=== PATIENT | female | born 1960 | race Caucasian/White ===

== ENCOUNTER 2020-05-22 05:33 | Inpatient (IN) | payer OTHER, SELFPAY ==
[~2020-05-22] VITALS: Ht 144.8 cm; Wt 50.1 kg
[2020-05-22 05:33] VITALS: BP_SYST 153
[~2020-05-22 05:33] MED LIST: ATOR-1 PO; DEXL60CA4 PO; ERGO500020 PO; FOLI-43 PO; FOLI0.8T2 PO; GABA-531 PO; INSU1CAR16; ISOS30TA6 PO; KETO60CR2 TP; LANS30CA56 PO; LEVO137T20 PO; METO-290 PO; METO25TA6 PO; ONDA4TAB5 PO; PRO40 PO; SERT50TA PO; SEVE800T8 PO; VIT1TABL70 PO
--- NOTE | 2020-05-22 05:34 | NUR ---
Patient to ER bed 3 to gown for evaluation. Side rails up.
--- NOTE | 2020-05-22 05:36 | NUR ---
ER at bedside examining patient.
[2020-05-22] MEDS ORDERED: ASPIRIN 81 MG TAB.CHEW PO ONE (06:00)
--- NOTE | 2020-05-22 06:01 | NUR ---
Patient came to ER. C/O Shortness of Breath x 4 days. Per patient reported, had shortness of breath since [place], and started chest pain, missed dialysis yesterday. 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
--- NOTE | 2020-05-22 06:15 | NUR ---
X-ray at bedside.
--- NOTE | 2020-05-22 06:32 | NUR ---
Nuria green in [facility] - 05/22/20 at 0709 by [email or web address] Blood for labwork drawn from clinical practice consultant. Patient tolerated well.
--- NOTE | 2020-05-22 06:43 | NUR ---
Rags Laborer at bedside for blood drawn, twice, can't drawn blood, Dr. Chisholm notified.
[2020-05-22] MEDS ORDERED: AZITHROMYCIN 250 MG TABLET PO ONE (06:45)
[2020-05-22] MEDS ORDERED: DEXAMETHASONE SOD PHOSPHATE 10 MG/ML VIAL IM ONE (06:45)
--- NOTE | 2020-05-22 07:15 | NUR ---
Swabbed Covid-19 as protocol and sent to lab.
--- NOTE | 2020-05-22 07:20 | NUR ---
Given report to TUAN Higgins.
[2020-05-22] MEDS ORDERED: ONDANSETRON 4 MG ODT TAB PO ONE (07:45)
--- NOTE | 2020-05-22 07:48 | NUR ---
RECEIVED ADMITTING ORDERS FROM DR. GALEAS.
--- NOTE | 2020-05-22 07:55 | NUR ---
aCCU CHECK DONE 341. MD NOTIFIED.
--- NOTE | 2020-05-22 07:56 | NUR ---
Dr. Shant Colvin at bedside.
--- NOTE | 2020-05-22 07:58 | NUR ---
Dr. Santoyo at bedside trying to put an IJ.
[2020-05-22] MEDS ORDERED: KETOCONAZOLE 2%, 60 GM TOPICAL CREAM. (NIZORAL) TP PRN (08:15)
[2020-05-22] MEDS ORDERED: cloNIDine HCL 0.2 MG TABLET PO PRN (08:15)
[2020-05-22] MEDS ORDERED: ACETAMINOPHEN 325 MG TABLET PO PRN (08:15)
[2020-05-22] MEDS ORDERED: LORazepam 2 MG/ML VIAL IVP PRN (08:15)
[2020-05-22] MEDS ORDERED: DEXTROSE 50% JECT 50 ML DISP.SYRIN IVP PRN (08:15)
[2020-05-22] MEDS ORDERED: MAGNESIUM SULFATE 50 ML IV PRN (08:15)
[2020-05-22] MEDS ORDERED: ZOLPIDEM TARTRATE 5 MG TABLET PO PRN (08:15)
[2020-05-22] MEDS ORDERED: POTASSIUM CHLORIDE 20 MEQ TAB.PRT.SR PO PRN (08:15)
[2020-05-22] MEDS ORDERED: DOCUSATE SODIUM 100 MG CAPSULE PO PRN (08:15)
[2020-05-22] MEDS ORDERED: MORPHINE 2 MG/ML INJ. SYRINGE IVP PRN (08:15)
[2020-05-22] MEDS ORDERED: ONDANSETRON HCL 4 MG/2 ML VIAL IVP PRN ×2 (08:15→08:30)
[2020-05-22] MEDS ORDERED: MUPIROCIN 2% TOPICAL OINTMENT 22 GM NS PRN (08:15)
[2020-05-22 08:24] LABS: BASOPHILS # (AUTO) 0.1 K/uL (0.0-0.2); BASOPHILS % (AUTO) 0.9 % (0.0-2.0); EOSINOPHILS % (AUTO) 0.4 % (0.0-4.0); HEMATOCRIT 31.5 % (36-48); HEMOGLOBIN 10.1 g/dL (12.0-16.0); LYMPHOCYTES # (AUTO) 0.2 K/uL (1.0-5.5); LYMPHOCYTES % (AUTO) 2.2 % (20.5-51.5); MEAN CORPUSCULAR HEMOGLOBIN 31 pg (27-31); MEAN CORPUSCULAR HGB CONC 32 % (32-36); MEAN CORPUSCULAR VOLUME 98 fL (79.0-98.0); MONOCYTES # (AUTO) 0.4 K/uL (0.0-1.0); MONOCYTES % (AUTO) 4.8 % (1.7-9.3); NEUTROPHILS # (AUTO) 7.6 K/uL (1.8-7.7); NEUTROPHILS % (AUTO) 91.7 % (40.0-70.0); PLATELET COUNT (AUTO) 155 K/uL (130-430); RED CELL DISTRIBUTION WIDTH 16.6 % (9.0-15.0); WHITE BLOOD COUNT (AUTO) 8.3 K/uL (4.8-10.8)
[2020-05-22 08:39] LABS: CALCIUM 9.2 mg/dL (8.4-11.0)
[2020-05-22 08:43] LABS: INR 1.2 (0.8-1.2); PROTHROMBIN TIME 12.6 SECS (9.5-12.5)
[2020-05-22 08:45] LABS: ALBUMIN 3.9 g/dL (3.4-4.8); TOTAL BILIRUBIN 0.9 mg/dL (0.0-1.0)
[2020-05-22 08:54] LABS: POTASSIUM 6.7 mmol/L (3.5-5.1)
[2020-05-22 08:55] LABS: CREATININE 10.26 mg/dL (0.55-1.30)
[2020-05-22] MEDS ORDERED: VIT B CMPLX PO SCH (09:00)
[2020-05-22] MEDS ORDERED: INSULIN REGULAR, HUMAN 100 UNITS/ML, 10 ML VIAL IV ONE (09:00)
[2020-05-22] MEDS: SERTRALINE HCL 50 MG TABLET PO SCH (09:00)
[2020-05-22] MEDS ORDERED: [UNRECOGNIZED DRUG - OTHER] PO SCH (09:00)
[2020-05-22] MEDS: NEPHROVITE, (FOLIC ACID/VITAMIN B COMP W-C 1 TAB) PO SCH (09:00)
[2020-05-22] MEDS: METOCLOPRAMIDE HCL 10 MG TABLET PO SCH (09:00)
[2020-05-22] MEDS: LANSOPRAZOLE 30 MG CAPSULE.DR PO SCH (09:00)
[2020-05-22] MEDS ORDERED: FOLIC ACID 1 MG TABLET PO SCH (09:00)
[2020-05-22] MEDS ORDERED: BIOTIN PO SCH (09:00)
[2020-05-22] MEDS: GABAPENTIN 300 MG CAPSULE PO SCH ×3 (09:00→21:00)
[2020-05-22] MEDS ORDERED: LEVOTHYROXINE SODIUM 0.137 MG TABLET PO SCH (09:00)
[2020-05-22] MEDS: ATORVASTATIN 20 MG TABLET PO SCH (09:00)
[2020-05-22] MEDS: HEPARIN SODIUM,PORCINE 5,000 UNITS/ML VIAL SUBCUT SCH ×2 (09:00→21:13)
[2020-05-22] MEDS ORDERED: NON-FORMULARY MEDICATION (Dexlansoprazole (Dexilant) 60 MG) PO SCH (09:00)
[2020-05-22] MEDS: ISOSORBIDE MONONITRATE 30 MG TAB.ER.24H PO SCH (09:00)
[2020-05-22] MEDS: METOPROLOL TARTRATE 25 MG TABLET PO SCH (09:00)
--- NOTE | 2020-05-22 09:04 | NUR ---
Administered Insulin IVP as ordered by Dr. Santoyo. Patient tolerated the medications well. See eMAR for details.
[2020-05-22] MEDS ORDERED: INSULIN REGULAR, HUMAN 10 UNITS/0.1 ML INJ ONE (09:17)
[2020-05-22] MEDS ORDERED: SODIUM ZIRCONIUM CYCLOSILICATE 10 GM POWD.PACK PO ONE (09:30)
[2020-05-22] MEDS ORDERED: CALCIUM GLUCONATE 1 GM/10 ML VIAL IVP ONE (09:30)
--- NOTE | 2020-05-22 09:45 | NUR ---
Dr. Stoddard at bedside.
--- NOTE | 2020-05-22 09:54 | NUR ---
Patient will be admitted to care of DR. GALEAS. Admitted to TELE PUI unit. Will go to room 124B. Belongings list completed. Complete and up to date summary report printed. SBAR report to be given at bedside with opportunity for questions.
--- NOTE | 2020-05-22 10:18 | NUR ---
Admission patient brought to room 124B via rney on 4L nasal cannula, bedside SBAR report received from DESK MONITOR, patient was able to transfer from rjarales to bed with assistance, no acute distress noted, patient denies any pain, respirations even and unlabored on 4L nasal cannula, tele monitor placed on patient, assisted patient to change into hospital gown, right IJ clean, dry, and intact, COVID [address], educated patient on use of call light and asked to call for assistance, patient verbalized understanding, call light in reach, bed in low and locked position, bed alarm on.
[2020-05-22 10:20] VITALS: BP_SYST 135
--- NOTE | 2020-05-22 10:27 | NUR ---
CONSULT PULMONARY SOB PNA DR BINH JOHNSON IS ROUNDING AND IS AWARE OF CONSULT
--- NOTE | 2020-05-22 10:30 | NUR ---
CONSULT NEPHROLOGY DIALYSIS DR ZAIN MARIE [phone] S/W [place] OFFICE
--- NOTE | 2020-05-22 10:31 | NUR ---
CONSULT CARDIOLOGY CHF DR DONALD [phone] S/W [place] OFFICE
--- NOTE | 2020-05-22 10:37 | NUR ---
Spoke with Physician spoke with Dr. Rodriges regarding orders for PICC line, informed him that patient currently has a right IJ with orders for PICC line placement, patients current dialysis access is a left upper thigh AV shunt, per patient she has an old access in her right upper arm, per Dr. Antelmo paniagua to place PICC line in left upper arm, verified with read back. Addendum: 05/22/20 at 1048 by Karen Rivera RN correction to above note, physician spoken to was Dr. Gordillo not Dr. Rodriges
--- NOTE | 2020-05-22 10:43 | NUR ---
PICC line vascular TUAN Joyner at bedside for placement of PICC line, informed Anya that per Dr. Rodriges PICC line may be placed to left upper arm, understanding verbalized. Addendum: 05/22/20 at 1048 by Karen Rivera RN correction to above note, physician spoken to was Dr. Gordillo not Dr. Rodriges
--- NOTE | 2020-05-22 10:55 | NUR ---
Physician Rounds Dr. Gordillo at bedside examining patient, vascular RN Anya speaking with Dr. Gordillo, per Dr. Gordillo okay to place midline due to difficulty placing PICC line.
--- NOTE | 2020-05-22 10:55 | NUR ---
Spoke with Pharmacist spoke with pharmacist Marisol, per pharmacist she will change calcium gluconate order from IVP to IV, RN not to administer the IVP orders and await IV medication from pharmacy.
[2020-05-22] MEDS ORDERED: CALCIUM GLUCONATE 1 GM in NS 50 ML IV ONE (11:00)
--- NOTE | 2020-05-22 11:02 | NUR ---
Midline midline placed by vascular TUAN Joyner to left upper arm, patient tolerated well, no acute distress noted, biopatch in place, transparent dressing in place, no bleeding, per vascular TUAN clark is ready to use.
--- NOTE | 2020-05-22 11:25 | NUR ---
Dialysis/Medication administration trim line worker Rucker at bedside setting up for hemodialysis, 0900 PO medications brought to bedside, per stem maker Rucker the PO medications will have to be held until dialysis is completed.
--- NOTE | 2020-05-22 11:36 | NUR ---
Closing Note SBAR report given to receiving RN, patient resting in bed, laboratory monitor at bedside for hemodialysis, respirations even and unlabored on 4L nasal cannula, no acute distress noted, patient denies any pain, educated patient on use of call light and asked to call for assistance, patient verbalized understanding, call light in reach, bed in low and locked position, bed alarm on, endorsed care to Irene Woodward.
[2020-05-22 11:40] VITALS: BP_SYST 124
--- NOTE | 2020-05-22 11:50 | NUR ---
REPORT. RECEIVED PT IN ROOM 124-B, PT AWAKE AND ALERT, ABLE TO EXPRESS BASIC NEEDS AND ATTENDED, HEMODIALYSIS IN PROGRESS, CALL LIGHT IN REACH, CONTINUE TO MONITOR.
[2020-05-22] MEDS: INSULIN LISPRO SLIDING SCALE 100 UNITS/ML VIAL (humaLOG) SUBCUT PRN ×3 (12:38→21:14)
[2020-05-22 14:00] VITALS: BP_SYST 125
--- NOTE | 2020-05-22 14:10 | NUR ---
HD. PT COMPLETED DIALYSIS, PULLED OUT 3 L.
[2020-05-22] MEDS: SEVELAMER CARBONATE 800 MG TABLET PO SCH ×2 (14:46→17:57)
--- NOTE | 2020-05-22 16:50 | NUR ---
ACITIVITY. PT ASKED TO BE TAKEN TO THE BATHROOM OFFERED A BEDPAN, PT DECLINED, PT REQUESTED TO BRING A COMMODE. PT ABLE TO GET OUT OF THE BED SLOWLY AND GUIDED HER TO THE BEDSIDE COMMODE. SHE HAD A BOWEL MOVEMENT. WIPES PROVIDED FOR PERINEAL HYGIENE. THEN SHE RETURNED TO HER BED AND CAREFULLY LIFTED HER LEGS TO BED.
[2020-05-22] MEDS: PIPERACILLIN/TAZO 2.25G/DEX-IS 50 ML IV SCH ×2 (16:52→21:04)
--- NOTE | 2020-05-22 18:20 | NUR ---
ELEVATED BLOOD SUGAR. CALLED DR GALEAS AND REPORTED THAT PT'S BLOOD SUGAR 452, 18 UNITS HUMALOG SQ WAS ALREADY GIVEN. HE ORDERED ANOTHER HUMALOG SQ INJECTION AND TO USE 10 UNITS, ORDERS CARRIED OUT.
[2020-05-22] MEDS ORDERED: INSULIN Lispro 100 UNITS/ML VIAL (humaLOG) SUBCUT ONE (18:30)
--- NOTE | 2020-05-22 19:00 | NUR ---
REPORT. GIVEN TO ONCOMING MILK PICKUP DRIVER NURSE.
[2020-05-22 20:00] VITALS: BP_SYST 110
--- NOTE | 2020-05-22 20:00 | NUR ---
opening note patient is resting in bed, alert and oriented, patient denies any pain at this time, tolerating well on 4L nasal cannula, patient was able to demonstrate to me 3 times that she is able to get onto the bedside commode independently. IV sites intact and flushing well. educated conference interpreter light system and plan of care, patient verbalized understanding, no other needs addressed at this time. fall/safety and isolation precautions in place.
--- NOTE | 2020-05-22 21:00 | NUR ---
Dr Vinicius connors informed him that the patient's blood sugar was 485. I informed him that I did follow the protocol and gave the sliding scale insulin lispro [address] Colvin gave me an order for lantus 10units QHS, first dose to be given now. I educated the patient about this and she verbalized understanding.
[2020-05-22] MEDS: INSULIN GLARGINE 100 UNITS/ML 10 ML VIAL SUBCUT SCH (22:13)
[2020-05-22] MEDS ORDERED: ROPI3TAB PO (23:18)
[2020-05-23] VITALS: BP_SYST 115
--- NOTE | 2020-05-23 00:47 | NUR ---
medication patient resting in bed, educated on medication use and side effects, patient verbalized understanding, no other needs addressed at this time, fall/safety and isolation precautions in place.
--- NOTE | 2020-05-23 02:18 | NUR ---
patient resting in bed patient resting in bed, eyes closed breathing easy and nonlabored, tolerating well on 4L nasal cannula, no other needs addressed at this time, fall/safety and isolation precautions in place.
[2020-05-23 04:00] VITALS: BP_SYST 136
[2020-05-23] MEDS: PIPERACILLIN/TAZO 2.25G/DEX-IS 50 ML IV SCH (06:15)
--- NOTE | 2020-05-23 06:35 | NUR ---
closing note patient is resting in bed, alert and oriented, patient denies any pain at this time, tolerating well on 4L nasal cannula, IV sites intact and flushing well. no other needs addressed at this time. fall/safety and isolation precautions in place. blood sugar was 93. will endorse care to day shift nurse. patient can get on bedside commode independently.
--- NOTE | 2020-05-23 07:27 | NUR ---
Nutrition Update Manuel Scale 15 noted. Pt admitted for CHF, Pneumonia Diet: Renal standard BMI: 23.4 kg/m2 RD to follow per nutrition care standards.
--- NOTE | 2020-05-23 07:30 | NUR ---
OPENING NOTES PT AWAKE, ALERT, AND ORIENTED, NONLABORED BREATHING NOTED, RECEIVING O2 AT 4LPM VIA NASAL CANNULA, TOLERATING WELL. MIDLINE INTACT AND PATENT, NO SIGNS OF INFILTRATION NOTED. NO ACUTE DISTRESS NOTED. ALL NEEDS MET. CALL LIGHT IN REACH. FALL, ASPIRATION, AND ISOLATION PRECAUTIONS IN PLACE. CONTINUE TO MONITOR.
[2020-05-23 08:00] VITALS: BP_SYST 124; BP_SYST 156
--- NOTE | 2020-05-23 08:00 | NUR ---
SPOKE TO DR. GALEAS REGARDING IJ CATHETER, OK TO REMOVE IF NOT PATENT SINCE PATIENT HAS MIDLINE INTACT.
--- NOTE | 2020-05-23 09:13 | NUR ---
SPOKE TO ANNITA FROM LAB, UNABLE TO DRAW LAB, ATTEMPTED THREE TIMES. SPOKE TO DR. GALEAS AT NURSE'S STATION, STATED TO TRY AGAIN, SPOKE TO ANNITA, STATED THEY WILL TRY AGAIN IN THE AFTERNOON.
--- NOTE | 2020-05-23 09:28 | NUR ---
CONSULTATION PAGED/CALLED Reason for Consultation: ENEDINA BERKOWITZ Person Who was Notified: JOEL Consulting Physician: ART Rate Setter Specialty: ID Ordering Physician: GUDELIA
[2020-05-23] MEDS: LEVOTHYROXINE SODIUM 0.1 MG TABLET PO SCH (09:30)
[2020-05-23] MEDS: ATORVASTATIN 20 MG TABLET PO SCH (09:30)
[2020-05-23] MEDS: HEPARIN SODIUM,PORCINE 5,000 UNITS/ML VIAL SUBCUT SCH ×2 (09:30→21:42)
[2020-05-23] MEDS: METOCLOPRAMIDE HCL 10 MG TABLET PO SCH (09:30)
[2020-05-23] MEDS: LANSOPRAZOLE 30 MG CAPSULE.DR PO SCH (09:30)
[2020-05-23] MEDS: SEVELAMER CARBONATE 800 MG TABLET PO SCH ×3 (09:30→18:30)
[2020-05-23] MEDS: SERTRALINE HCL 50 MG TABLET PO SCH (09:30)
[2020-05-23] MEDS: GABAPENTIN 300 MG CAPSULE PO SCH ×3 (09:30→21:28)
[2020-05-23] MEDS: ISOSORBIDE MONONITRATE 30 MG TAB.ER.24H PO SCH (09:30)
[2020-05-23] MEDS: METOPROLOL TARTRATE 25 MG TABLET PO SCH (09:30)
[2020-05-23] MEDS: NEPHROVITE, (FOLIC ACID/VITAMIN B COMP W-C 1 TAB) PO SCH (09:30)
--- NOTE | 2020-05-23 09:30 | NUR ---
ROUTINE MEDS ADMINISTERED ORDERED PER MD, EDUCATION GIVEN, TOLERATED WELL. PT REFUSED GABAPENTIN, EDUCATION GIVEN ON RISKS AND BENEFITS, ASKED THREE TIMES, PT CONTINUE TO REFUSE.
--- NOTE | 2020-05-23 09:31 | NUR ---
WASTED PT'S MED GABAPENTIN IN THE ROOM SINCE PT REFUSED AND ISO FOR PUI.
--- NOTE | 2020-05-23 12:00 | NUR ---
VITAL SIGNS STABLE. NO ACUTE DISTRESS NOTED. ALL NEEDS MET. CALL LIGHT IN REACH. CONTINUE TO MONITOR.
--- NOTE | 2020-05-23 14:26 | NUR ---
Dietitian Recommendations *Recommend: [facility] Renal Standard diet. Please see Nutritional Assessment for details. ROSITA, JOANNA
[2020-05-23] MEDS: cefTRIAXone 1 GM in D5W 50 ML IV SCH (15:00)
[2020-05-23 17:06] VITALS: BP_SYST 124
[2020-05-23] MEDS: INSULIN LISPRO SLIDING SCALE 100 UNITS/ML VIAL (humaLOG) SUBCUT PRN ×2 (17:30→21:40)
--- NOTE | 2020-05-23 19:00 | NUR ---
CLOSING NOTES REMOVED IJ IV LINE, PER DR. GALEAS OK TO REMOVE. CATHETER TIP INTACT, APPLIED PRESSURE, NO ACTIVE BLEEDING NOTED. PT AWAKE, ALERT, AND ORIENTED EATING DINNER. NO ACUTE DISTRESS NOTED. PT RECEIVING O2 AT 4LPM VIA NASAL CANNULA. ALL NEEDS MET. MIDLINE INTACT AND PATENT, NO SIGNS OF INFILTRATION NOTED. FALL AND ASPIRATION AND ISOLATION PRECAUTIONS IN PLACE. WILL ENDORSE TO NOC NURSE.
--- NOTE | 2020-05-23 19:45 | NUR ---
OPENING NOTES Received report from TUAN Bo. Patient resting in wheelchair, AAOx4, breathing evenly and nonlabored on 4L of oxygen via NC. Patient has a midline on the left upper arm. Patient has a left thigh shunt with dialysis schedule MWF. Educated patient on plan of care, fall/safety/isolation/aspiration precautions, call light system, patient stated understanding with return demonstration. No s/s of distress at this time, no other needs at this time, will continue to monitor.
--- NOTE | 2020-05-23 19:50 | NUR ---
SPOKE WITH DR. CORDOVA, NOTIFIED MD THAT PATIENT'S COVID RAPID AND PCR FOR 05/22/30 WAS NEGATIVE, LATEST VITAL SIGNS WERE NORMAL AND THAT PATIENT IS CURRENTLY ON 4L OF OXYGEN VIA NC, O2 SATURATION NORMAL. MD ORDERED TO DISCONTINUE COVID ISOLATION.
[2020-05-23 21:00] VITALS: BP_SYST 136
[2020-05-23] MEDS: DOXYCYCLINE HYCLATE 100 MG CAPSULE PO SCH (21:28)
[2020-05-23] MEDS: INSULIN GLARGINE 100 UNITS/ML 10 ML VIAL SUBCUT SCH (21:39)
--- NOTE | 2020-05-23 21:40 | NUR ---
MEDICATIONS/ROUNDS Patient resting in wheelchair, awake, breathing evenly and nonlabored on 4L of oxygen via NC. Midline on the left upper arm flushed, patent and benign, no s/s of infiltration or infection noted. Notified patient on plan to transfer to a regular room. Educated patient on due medications, patient stated understanding. BS checked, coverage was needed. Administered medications, patient tolerated them well. Hygiene care done. Patient denies any pain or SOB at this time. No s/s of distress at this time, no other needs at this time. Fall/safety/aspiration precautions, will continue to monitor.
--- NOTE | 2020-05-23 22:05 | NUR ---
TRANSFER TO ROOM 113A Transferred patient to room 113A. Patient resting in bed, awake, breathing evenly and nonlabored on 4L of oxygen via NC. Reoriented patient to room and call light system, patient stated understanding with return demonstration. Patient asked for some snacks which was provided. No s/s of distress at this time, no other needs at this time. Fall/safety/aspiration precautions, will continue to monitor.
--- NOTE | 2020-05-24 00:10 | NUR ---
ROUNDS Patient resting in bed, awake, breathing evenly and nonlabored on 4L of oxygen via NC. Patient refused midnight vital sign check. Educated patient on importance of checking vital signs every four hours, patient stated understanding but still refused. Patient denied any SOB or pain at this time. No s/s of distress at this time, no other needs at this time. Fall/safety/aspiration precautions, will continue to monitor.
--- NOTE | 2020-05-24 02:01 | NUR ---
ROUNDS Patient resting in bed, eyes closed, breathing evenly and nonlabored on 4L of oxygen via NC. No s/s of distress at this time, no other needs at this time. Fall/safety/aspiration precautions, will continue to monitor.
--- NOTE | 2020-05-24 04:15 | NUR ---
ROUNDS Patient resting in bed, eyes closed, breathing evenly and nonlabored on 4L of oxygen via NC. No s/s of distress at this time, no other needs at this time. Fall/safety/aspiration precautions, will continue to monitor the patient.
[2020-05-24 04:50] VITALS: BP_SYST 124
[2020-05-24] MEDS: INSULIN LISPRO SLIDING SCALE 100 UNITS/ML VIAL (humaLOG) SUBCUT PRN ×3 (06:26→20:38)
--- NOTE | 2020-05-24 06:26 | NUR ---
CLOSING NOTES Patient resting in bed, awake, breathing evenly and nonlabored on 4L of oxygen via NC. Daily weight was done earlier. BS checked, coverage was needed. No s/s of distress at this time, no other needs at this time. Needs met throughout the shift. Fall/safety/aspiration precautions, will endorse care to morning shift RN.
--- NOTE | 2020-05-24 07:30 | NUR ---
OPENING NOTES PT AWAKE, ALERT, AND ORIENTED X4. NONLABORED BREATHING NOTED, RECEIVING O2 AT 4LPM VIA NASAL CANNULA, TOLERATING WELL. MIDLINE INTACT AND PATENT, NO SIGNS OF INFILTRATION NOTED. NO ACUTE DISTRESS NOTED. ALL NEEDS MET. CALL LIGHT IN REACH. FALL, ASPIRATION, AND ISOLATION PRECAUTIONS IN PLACE. CONTINUE TO MONITOR.
[2020-05-24 07:36] LABS: BASOPHILS % (AUTO) 0.6 % (0.0-2.0); EOSINOPHILS # (AUTO) 0.5 K/uL (0.0-0.4); EOSINOPHILS % (AUTO) 10.1 % (0.0-4.0); HEMATOCRIT 31.2 % (36-48); HEMOGLOBIN 10.1 g/dL (12.0-16.0); LYMPHOCYTES % (AUTO) 21.1 % (20.5-51.5); MEAN CORPUSCULAR HEMOGLOBIN 31 pg (27-31); MEAN CORPUSCULAR HGB CONC 33 % (32-36); MEAN CORPUSCULAR VOLUME 97 fL (79.0-98.0); MONOCYTES # (AUTO) 0.6 K/uL (0.0-1.0); NEUTROPHILS # (AUTO) 2.6 K/uL (1.8-7.7); NEUTROPHILS % (AUTO) 56.2 % (40.0-70.0); PLATELET COUNT (AUTO) 163 K/uL (130-430); RED BLOOD CELL COUNT(AUTO) 3.23 MIL/uL (4.2-6.2); RED CELL DISTRIBUTION WIDTH 16.9 % (9.0-15.0); WHITE BLOOD COUNT (AUTO) 4.6 K/uL (4.8-10.8)
[2020-05-24 07:55] LABS: ALBUMIN 3.2 g/dL (3.4-4.8); CALCIUM 8.5 mg/dL (8.4-11.0); CREATININE 4.42 mg/dL (0.55-1.30); TOTAL BILIRUBIN 0.6 mg/dL (0.0-1.0)
[2020-05-24 08:00] VITALS: BP_SYST 154
[2020-05-24] MEDS: NEPHROVITE, (FOLIC ACID/VITAMIN B COMP W-C 1 TAB) PO SCH (08:14)
[2020-05-24] MEDS: SEVELAMER CARBONATE 800 MG TABLET PO SCH ×3 (08:14→17:05)
[2020-05-24] MEDS: METOPROLOL TARTRATE 25 MG TABLET PO SCH (08:14)
[2020-05-24] MEDS: ISOSORBIDE MONONITRATE 30 MG TAB.ER.24H PO SCH (08:15)
[2020-05-24] MEDS: SERTRALINE HCL 50 MG TABLET PO SCH (08:15)
[2020-05-24] MEDS: METOCLOPRAMIDE HCL 10 MG TABLET PO SCH (08:16)
[2020-05-24] MEDS: ATORVASTATIN 20 MG TABLET PO SCH (08:16)
[2020-05-24] MEDS: DOXYCYCLINE HYCLATE 100 MG CAPSULE PO SCH ×2 (08:17→20:28)
[2020-05-24] MEDS: LANSOPRAZOLE 30 MG CAPSULE.DR PO SCH (08:17)
[2020-05-24] MEDS: HEPARIN SODIUM,PORCINE 5,000 UNITS/ML VIAL SUBCUT SCH ×2 (08:19→20:31)
[2020-05-24] MEDS: GABAPENTIN 300 MG CAPSULE PO SCH ×4 (08:22→20:41)
--- NOTE | 2020-05-24 08:30 | NUR ---
ROUTINE MEDS ADMINISTERED ORDERED PER MD, EDUCATION GIVEN, TOLERATED WELL. CONTINUE TO MONITOR.
--- NOTE | 2020-05-24 08:31 | NUR ---
SEEN BY DR. DONALD AT BEDSIDE.
--- NOTE | 2020-05-24 08:36 | NUR ---
DR. GALEAS AWARE PATIENT REFUSING GABAPENTIN.
[2020-05-24] MEDS ORDERED: LEVO250T58 PO (08:37)
--- NOTE | 2020-05-24 09:00 | NUR ---
ROUTINE MEDS/ FLU VACCINE ROUTINE MEDS ADMINISTERED ORDERED PER MD, EDUCATION GIVEN, TOLERATED WELL. FLU VACCINE ADMINISTERED ORDERED PER MD, PT CONSENTED, EDUCATION GIVEN, PT VERBALIZED UNDERSTANDING, TOLERATED WELL. ALL NEEDS MET. CALL LIGHT IN REACH. CONTINUE TO MONITOR. Addendum: 05/24/20 at 1207 by Betzy Gallegos RN WRONG PT
[2020-05-24] MEDS: LEVOTHYROXINE SODIUM 0.1 MG TABLET PO SCH (10:17)
--- NOTE | 2020-05-24 10:18 | NUR ---
routine meds administered as ordered per md, education given, tolerated well. continue to monitor.
--- NOTE | 2020-05-24 11:21 | NUR ---
PT HAD TEMP OF 100.3, PLAN TO D/C TODAY, PAGED DR. GALEAS, SPOKE TO JOEL FOR EXCHANGE. Addendum: 05/24/20 at 1201 by Betzy Gallegos RN APPLIED COOLING METHODS TO PATIENT
--- NOTE | 2020-05-24 11:30 | NUR ---
SPOKE TO DR. GALEAS REGARDING PATIENT'S TEMP, DR. GALEAS STATED TO CANCEL D/C ORDER AT THIS TIME. RECEIVED ORDERS, VERIFIED, AND CARRIED OUT.
--- NOTE | 2020-05-24 11:44 | NUR ---
ENDORSED CARE TO TUAN MORA. PT STABLE AT THIS TIME. ENDORSED TEMGuerline READING AND DR. GALEAS CANCELLED D/C ORDER AT THIS TIME.
--- NOTE | 2020-05-24 11:45 | NUR ---
received report from beatriz ibarra.
--- NOTE | 2020-05-24 13:15 | NUR ---
DC summary faxed to Felicitas at [facility]
[2020-05-24] MEDS: cefTRIAXone 1 GM in D5W 50 ML IV SCH (13:30)
--- NOTE | 2020-05-24 13:38 | NUR ---
[phone] SPOKE WITH RUBY.
[2020-05-24] MEDS ORDERED: MAG-AL HYDROX/SIMETH 30 ML UDC PO PRN (14:15)
[2020-05-24 16:13] VITALS: BP_SYST 138
--- NOTE | 2020-05-24 18:47 | NUR ---
CLOSING NOTES, PT HAS BEEN STABLE THE WHOLE SHIFT, PT SEEN BY DR [place], HD ORDERED FOR TOMORROW. ALL MEDS GIVEN. KDUR GIVEN FOR K LEVEL OF 3.0. WILL ENDORSE TO NIGHT NURSE.
--- NOTE | 2020-05-24 19:10 | NUR ---
OPENING NOTES Patient is resting, no signs of acute respiratory distress, 2L NC. Iv site patent, dressings c/d/i. Call light within reach, bed alarm off per request after patient demonstrates proper usage of call light, bed at lowest position, HOB elevated. Received report that patient will have dialysis tomorrow. Will continue to monitor.
[2020-05-24 20:00] VITALS: BP_SYST 156
[2020-05-24] MEDS: INSULIN GLARGINE 100 UNITS/ML 10 ML VIAL SUBCUT SCH (20:36)
[2020-05-25] VITALS: BP_SYST 131
--- NOTE | 2020-05-25 00:06 | NUR ---
Patient resting, eyes closed, rise and fall of chest noted. No distress noted. Will continue to monitor.
--- NOTE | 2020-05-25 04:01 | NUR ---
Patient ambulated to the restroom with walker to use the restroom with steady gait. Patient back in bed, will continue to monitor.
--- NOTE | 2020-05-25 06:33 | NUR ---
IVP MORPHINE TAKEN OUT OF P[facility]XIS TO PROVIDE TO PATIENT, PATIENT REFUSED. PATIENT DID NOT RECEIVE MORPHINE AT THIS TIME. WASTED 2MG WITH SECOND NURSE WITNESS AT MEDICATION ROOM.
--- NOTE | 2020-05-25 06:50 | NUR ---
CLOSING NOTES Patient is resting, HOB elevated, 2L NC. No respiratory distress noted. IV site patent, dressings c/d/i. Call light within reach, bed alarm on, bed at lowest position. Patient is scheduled to have dialysis today. All needs met throughout shift. Will endorse care to oncoming shift. Addendum: 05/25/20 at 0706 by Curt Rubalcava RN PROVIDED PATIENT WITH CRANBERRY JUICE AND BLAIR CRACKER FOR BLOOD SUGAR 84. PATIENT PROVIDED TYLENOL INSTEAD OF MORPHINE AT THIS TIME.
[2020-05-25 08:00] VITALS: BP_SYST 171
[2020-05-25] MEDS: SEVELAMER CARBONATE 800 MG TABLET PO SCH ×2 (08:00→12:00)
--- NOTE | 2020-05-25 08:00 | NUR ---
NOTE OPERATING ROOM SPECIALIST AT PT'S BEDSIDE TO START DIALYSIS AT THIS TIME.
--- NOTE | 2020-05-25 08:14 | NUR ---
DISCHARGE PLANNING Per Dr Rodriges notes, pt will require HD 4x/wk. Called & spoke with Kerri @ [facility], ph [phone], states is already aware & will get the auth for it. Informed plan for pt to dc home after HD here today. States pt to go to HD as scheduled Thursday & they will set up the 4th day, she is aware pt prefers e & Th. They will arrange, states nothing else for CM to do.
[2020-05-25 08:35] LABS: BASOPHILS # (AUTO) 0.1 K/uL (0.0-0.2); BASOPHILS % (AUTO) 1.5 % (0.0-2.0); EOSINOPHILS # (AUTO) 0.5 K/uL (0.0-0.4); EOSINOPHILS % (AUTO) 8.4 % (0.0-4.0); HEMATOCRIT 29.2 % (36-48); HEMOGLOBIN 9.5 g/dL (12.0-16.0); LYMPHOCYTES # (AUTO) 0.8 K/uL (1.0-5.5); MEAN CORPUSCULAR HEMOGLOBIN 31 pg (27-31); MEAN CORPUSCULAR HGB CONC 33 % (32-36); MEAN CORPUSCULAR VOLUME 96 fL (79.0-98.0); MONOCYTES # (AUTO) 0.5 K/uL (0.0-1.0); MONOCYTES % (AUTO) 8.9 % (1.7-9.3); NEUTROPHILS # (AUTO) 3.6 K/uL (1.8-7.7); NEUTROPHILS % (AUTO) 67.2 % (40.0-70.0); PLATELET COUNT (AUTO) 160 K/uL (130-430); RED BLOOD CELL COUNT(AUTO) 3.04 MIL/uL (4.2-6.2); RED CELL DISTRIBUTION WIDTH 16.7 % (9.0-15.0); WHITE BLOOD COUNT (AUTO) 5.4 K/uL (4.8-10.8)
[2020-05-25 08:40] LABS: CALCIUM 8.5 mg/dL (8.4-11.0); CREATININE 6.34 mg/dL (0.55-1.30); POTASSIUM 4.9 mmol/L (3.5-5.1)
--- NOTE | 2020-05-25 08:55 | NUR ---
Note Pt's dialysis started at left thigh AV shunt. No SOB/resp distress or pain/discomfort noted at this time. ANA midline intact and patent at this time. Pt denies any needs at this time. Pt sitting up in bed eating her breakfast. Dr Recio at bedside at 0800 Dr Lainez (nephro) at bedside answering questions/concerns at this time. Pt next to nurses' station for close observation for needs and care. Call light within reach.
[2020-05-25] MEDS: LEVOTHYROXINE SODIUM 0.1 MG TABLET PO SCH (09:00)
[2020-05-25] MEDS: INSULIN LISPRO SLIDING SCALE 100 UNITS/ML VIAL (humaLOG) SUBCUT PRN (11:46)
--- NOTE | 2020-05-25 12:00 | NUR ---
Note Dialysis completed at this time.
[2020-05-25 12:19] VITALS: BP_SYST 127
[2020-05-25] MEDS: LANSOPRAZOLE 30 MG CAPSULE.DR PO SCH (13:13)
[2020-05-25] MEDS: ISOSORBIDE MONONITRATE 30 MG TAB.ER.24H PO SCH (13:13)
[2020-05-25] MEDS: NEPHROVITE, (FOLIC ACID/VITAMIN B COMP W-C 1 TAB) PO SCH (13:14)
[2020-05-25] MEDS: METOPROLOL TARTRATE 25 MG TABLET PO SCH (13:14)
[2020-05-25] MEDS: METOCLOPRAMIDE HCL 10 MG TABLET PO SCH (13:14)
[2020-05-25] MEDS: SERTRALINE HCL 50 MG TABLET PO SCH (13:15)
[2020-05-25] MEDS: DOXYCYCLINE HYCLATE 100 MG CAPSULE PO SCH (13:15)
[2020-05-25] MEDS: ATORVASTATIN 20 MG TABLET PO SCH (13:15)
[2020-05-25] MEDS: HEPARIN SODIUM,PORCINE 5,000 UNITS/ML VIAL SUBCUT SCH (13:19)
[2020-05-25] MEDS: GABAPENTIN 300 MG CAPSULE PO SCH (13:19)
[2020-05-25] MEDS: cefTRIAXone 1 GM in D5W 50 ML IV SCH (13:23)
[2020-05-25 13:28] VITALS: BP_SYST 147
--- NOTE | 2020-05-25 13:50 | NUR ---
NOTE Pt states she has appointment with her Care Transition Mgr on - already scheduled.
--- NOTE | 2020-05-25 14:00 | NUR ---
Note Pt completed lunch sitting on side of bed. Pt's tele unit was dc'd and returned to clinical research monitor. ANA PICC was dc'd per Dr Colvin's order. Pt called her son to bring her fresh clothes for discharge home.
--- NOTE | 2020-05-25 14:55 | NUR ---
Note Pt was given discharge instructions. Questions/concerns answered at this time. Pt dressed in street clothes and packed all her belongings. Pt checked side table and drawers for belongings. Pt denies any SOB/resp distress or pain/discomfort at this time. Pt stable at this time. Pt was checked on q1' and PRN all shift for needs and care. Pt was maintained with safety precautions all shift. Pt off the floor via wheelchair with all her belongings and discharge paperwork to private car.
[2020-05-28] MEDS ORDERED: ERGOCALCIFEROL 50000 UNIT PO SCH (09:00)
== END 2020-05-25 14:55 | disposition home or self-care (01) | DRG 291 ==
LOC: SED 05:33 → STU 07:43
PROVIDERS: ADMIT General Practice; ATTEND General Practice
PROC: 5A1D70Z Performance of Urinary Filtration, Intermittent, Less than 6 Hours Per Day (ICD-10-PCS; principal; 2020-05-22)
PROC: 05HY33Z Insertion of Infusion Device into Upper Vein, Percutaneous Approach (ICD-10-PCS; 2020-05-22)
PROC: B54MZZA Ultrasonography of Right Upper Extremity Veins, Guidance (ICD-10-PCS; 2020-05-22)
PROC: 5A1D70Z Performance of Urinary Filtration, Intermittent, Less than 6 Hours Per Day (ICD-10-PCS; 2020-05-23)
PROC: 5A1D70Z Performance of Urinary Filtration, Intermittent, Less than 6 Hours Per Day (ICD-10-PCS; 2020-05-25)
DX: I13.2 Hypertensive heart and chronic kidney disease with heart failure and with stage 5 chronic kidney disease, or end stage renal disease (principal); N17.0 Acute kidney failure with tubular necrosis; J18.9 Pneumonia, unspecified organism; I50.43 Acute on chronic combined systolic (congestive) and diastolic (congestive) heart failure; J96.21 Acute and chronic respiratory failure with hypoxia; N18.6 End stage renal disease; E03.9 Hypothyroidism, unspecified; E10.22 Type 1 diabetes mellitus with diabetic chronic kidney disease; E10.42 Type 1 diabetes mellitus with diabetic polyneuropathy; E78.5 Hyperlipidemia, unspecified; Z20.828 Contact with and (suspected) exposure to other viral communicable diseases; E10.51 Type 1 diabetes mellitus with diabetic peripheral angiopathy without gangrene; K21.9 Gastro-esophageal reflux disease without esophagitis; M81.0 Age-related osteoporosis without current pathological fracture; Z79.4 Long term (current) use of insulin; Z99.81 Dependence on supplemental oxygen; Z99.2 Dependence on renal dialysis
CPT/HCPCS: 36415; 36600; 71045; 80048; 80053; 82803-TC; 82962; 83036; 83735-TC; 83880; 84484; 85025; 85610-TC; 85730-TC; 87081; 90935; 90937; 93005; 96372; 96374; 99291; C1751; G0378; J0610; J0696; J1100; J1644; J1815; J2270; J2405; J2543; J7030; J7060; J8597; Q0144; Q0162; U0003-CS

== ENCOUNTER 2020-05-27 16:51 | Inpatient (IN) | payer OTHER, SELFPAY ==
[~2020-05-27] VITALS: Ht 139.7 cm; Wt 47.3 kg
[~2020-05-27 16:51] MED LIST changes: +LEVO250T58 PO; +ROPI3TAB PO
[2020-05-27 17:19] VITALS: BP_SYST 157
--- NOTE | 2020-05-27 17:19 | NUR ---
Patient to ER bed 3 to gown for evaluation. Side rails up. Report given to JESSE.
--- NOTE | 2020-05-27 17:23 | NUR ---
Pt in [facility] room 3, side rails up and in gown. Pt seems awake and alert with minimal verbal responses. VSS
--- NOTE | 2020-05-27 17:25 | NUR ---
MONIKA Frye at bedside examining patient.
--- NOTE | 2020-05-27 18:36 | NUR ---
pt in [facility]. Alert and able to make needs known. Denies pain and VSS
--- NOTE | 2020-05-27 18:41 | NUR ---
Pt denies nausea and No vomiting while in ER.
--- NOTE | 2020-05-27 19:15 | NUR ---
Note undone in [facility] - 05/27/20 at 2313 by JUANA # 20 gauge angiocath placed to right upper arm. Use of asceptic technique. Opsite placed over site. Blood return noted. Blood for lab drawn from site. Flushed with 10 cc of normal saline. No evidence of infiltration noted. Patient tolerated well. Addendum: 05/27/20 at 1927 by JUANA Amendment undone in [facility] - 05/27/20 at 2313 by JUANA placed by Dr. Frye using ultrasound.
--- NOTE | 2020-05-27 19:25 | NUR ---
received report from TUAN Cardenas for continuation of care.
--- NOTE | 2020-05-27 19:34 | NUR ---
# 20 gauge angiocath placed to L arm. Use of asceptic technique. Opsite placed over site. Blood return noted. Blood for lab drawn from site. Flushed with 10 cc of normal saline. No evidence of infiltration noted. Patient tolerated well.
--- NOTE | 2020-05-27 19:34 | NUR ---
report to Misty DICKERSON.
[2020-05-27 19:38] LABS: BASOPHILS # (AUTO) 0.1 K/uL (0.0-0.2); EOSINOPHILS # (AUTO) 0.2 K/uL (0.0-0.4); EOSINOPHILS % (AUTO) 2.3 % (0.0-4.0); HEMATOCRIT 36.5 % (36-48); HEMOGLOBIN 11.9 g/dL (12.0-16.0); LYMPHOCYTES # (AUTO) 0.4 K/uL (1.0-5.5); LYMPHOCYTES % (AUTO) 5.2 % (20.5-51.5); MEAN CORPUSCULAR HEMOGLOBIN 31 pg (27-31); MEAN CORPUSCULAR HGB CONC 33 % (32-36); MEAN CORPUSCULAR VOLUME 96 fL (79.0-98.0); MONOCYTES # (AUTO) 0.4 K/uL (0.0-1.0); MONOCYTES % (AUTO) 5.1 % (1.7-9.3); NEUTROPHILS # (AUTO) 7.2 K/uL (1.8-7.7); NEUTROPHILS % (AUTO) 86.4 % (40.0-70.0); PLATELET COUNT (AUTO) 213 K/uL (130-430); RED BLOOD CELL COUNT(AUTO) 3.82 MIL/uL (4.2-6.2); RED CELL DISTRIBUTION WIDTH 17.4 % (9.0-15.0); WHITE BLOOD COUNT (AUTO) 8.3 K/uL (4.8-10.8)
[2020-05-27 19:48] LABS: CALCIUM 9.3 mg/dL (8.4-11.0)
[2020-05-27 19:51] LABS: INR 1.1 (0.8-1.2); PROTHROMBIN TIME 11.7 SECS (9.5-12.5)
--- NOTE | 2020-05-27 19:54 | NUR ---
lab critical reporting - potassium 5.9, creatinine 8.66. aware
[2020-05-27 19:56] LABS: CREATININE 8.66 mg/dL (0.55-1.30); POTASSIUM 5.9 mmol/L (3.5-5.1)
[2020-05-27 20:03] LABS: ALBUMIN 4.1 g/dL (3.4-4.8); FREE T4 (FREE THYROXINE) 1.1 ng/dl (0.8-1.5); THYROID STIMULATING HORMONE 1.14 uIu/mL (0.36-3.74); TOTAL BILIRUBIN 0.5 mg/dL (0.0-1.0)
--- NOTE | 2020-05-27 20:40 | NUR ---
PT SLEEPING AT THIS TIME. NO SIGNS OF ACUTE DISTRESS. VITAL SIGNS STABLE
--- NOTE | 2020-05-27 21:42 | NUR ---
NO SIGNS OF ACUTE DISTRESS NOTED. PATIENT ASLEEP IN BED.
--- NOTE | 2020-05-27 22:35 | NUR ---
PT NAUSEOUS AND GAGGING. MD AWARE.
--- NOTE | 2020-05-27 22:40 | NUR ---
# 16 FR In and Out catheter with use of sterile technique. Immediate return of 0 ml urine noted. Urine sample collected and sent to lab. Pt tolerated procedure WELL. Patient unable to toilet self.
[2020-05-27] MEDS ORDERED: ONDANSETRON HCL 4 MG/2 ML VIAL IVP ONE (22:45)
--- NOTE | 2020-05-27 22:45 | NUR ---
ATTEMPTED TO GET URINE SAMPLE FROM PT USING A IN AND OUT CATHETER. PT RECEIVES DAILYSIS. PT UNABLE TO MAKE URINE AT THIS TIME.
--- NOTE | 2020-05-28 00:32 | NUR ---
Patient's code status is full code paperwork completed and placed in chart.
--- NOTE | 2020-05-28 00:36 | NUR ---
Medication reconciliation completed with information provided by patient chart. Any prior medication reconciliation on file was reviewed and corrected.
--- NOTE | 2020-05-28 01:25 | NUR ---
MRSA AND COVID SWAB SENT TO LAB.
--- NOTE | 2020-05-28 02:33 | NUR ---
CALLED AND GAVE REPORT TO TUAN MARTINEZ AT [facility].
--- NOTE | 2020-05-28 02:40 | NUR ---
Patient to be transferred to [facility]. Is being transferred due to higher level of care. Receiving facility has accepting physician and available space. ER physician has signed transfer form. Patient or responsible constitution party has agreed to transfer and signed form. Patient belongings inventoried and will be sent with patient. Copy of nursing notes, lab reports, EKG, Physicians Orders and X-rays to be sent with patient. Report called to TUAN MARTINEZ at receiving facility. [facility] has been called for transfer. ETA is 0320.
--- NOTE | 2020-05-28 03:32 | NUR ---
REPORT GIVEN TO RN AND [facility] PRIOR TO DISCHARGE.
--- NOTE | 2020-05-28 03:56 | NUR ---
ACCMAL -BS 503
--- NOTE | 2020-05-28 04:15 | NUR ---
[facility] TRANSPORT REFUSING TO TRANSPORT PATIENT, [facility] PAGING DOCTOR TO ADMIT TO HOSPITAL.
--- NOTE | 2020-05-28 04:24 | NUR ---
RECEIEVED ADMIT ORDERS FROM DR. VIRAMONTES
--- NOTE | 2020-05-28 04:41 | NUR ---
SPOKE WITH SR. PRICING ANALYSTEUGENE TO REQUEST TELE BED.
[2020-05-28] MEDS ORDERED: ONDANSETRON HCL 4 MG/2 ML VIAL IVP ONE (05:15)
[2020-05-28 05:21] VITALS: BP_SYST 97
--- NOTE | 2020-05-28 05:21 | NUR ---
ADMISSION NOTE Received patient from ER via gurney. Patient admitted with diagnosis of HYPERKALEMIA/ RENAL DISEASE. Patient is awake, alert, oriented X 1. Patient oriented to hospital room, call light, toileting, pain management and safety-teach back done. Patient informed that ADONIS will be HER nurse and that their room number is 133A. Personal belongings checked and Belongings List documented. Call light within reach.
--- NOTE | 2020-05-28 05:24 | NUR ---
Patient will be admitted to care of [facility]. Admitted to TELE unit. Will go to room 133A. Belongings list completed. Complete and up to date summary report printed. SBAR report to be given at bedside with opportunity for questions.
--- NOTE | 2020-05-28 05:24 | NUR ---
Transfer to TELE via ACLS protocol. Licensed nurse present. IV present no signs or symptoms of infiltration.
--- NOTE | 2020-05-28 05:58 | NUR ---
CONSULT: CONSULT CALLED FOR DR. GEE I SPOKE WITH [employer] REASON FOR CONSULT: RENAL DISEASE REQUESTING CONSULT: DR. VIRAMONTES ASSISTANT TO THE DEAN PHONE NUMBER: [phone]
[2020-05-28] MEDS: NORMAL SALINE 5 ML DISP.SYRIN IVF SCH ×3 (06:21→22:16)
--- NOTE | 2020-05-28 07:26 | NUR ---
Nutrition Update Manuel Scale 14 noted. Pt admitted for Hyperkalemia, Renal Disease Diet: 2gm Na BMI: 23.6 kg/m2 RD to follow per nutrition care standards.
--- NOTE | 2020-05-28 07:30 | NUR ---
OPENING NOTES: RECEIVED PATIENT FROM OFFICE SERVICE COORDINATOR NURSE. PATIENT IS AWAKE LAYING DOWN IN BED. PATIENT IS NOT SPEAKING BUT LOOKING AROUND WITH HER EYES OPEN. IV SITE IS PATENT WITH NO SIGNS OF INFILTRATION NOTED. PATIENT IS TOLERATING OXYGEN ON 2 L NASAL CANNULA WITH NO SIGNS OF DISTRESS OR SHORTNESS OF BREATH NOTED. PATIENT WAS REPOSITIONED. PATIENT IN STABLE CONDITION. SAFETY, FALL AND ASPIRATION PRECAUTIONS ARE IN PLACE. BED LOCKED IN LOWEST POSITION WITH CALL LIGHT IN REACH. WILL CONTINUE TO MONITOR PATIENT FOR ANY CHANGES.
--- NOTE | 2020-05-28 07:30 | NUR ---
CLOSING NOTE: SBAR report endorsed to oncoming RN for continuity of care.
[2020-05-28 08:30] LABS: BASOPHILS # (AUTO) 0.1 K/uL (0.0-0.2); BASOPHILS % (AUTO) 0.8 % (0.0-2.0); EOSINOPHILS % (AUTO) 0.1 % (0.0-4.0); HEMATOCRIT 34.5 % (36-48); HEMOGLOBIN 10.2 g/dL (12.0-16.0); LYMPHOCYTES # (AUTO) 0.4 K/uL (1.0-5.5); LYMPHOCYTES % (AUTO) 2.6 % (20.5-51.5); MEAN CORPUSCULAR HEMOGLOBIN 31 pg (27-31); MEAN CORPUSCULAR HGB CONC 30 % (32-36); MEAN CORPUSCULAR VOLUME 104 fL (79.0-98.0); MONOCYTES # (AUTO) 0.5 K/uL (0.0-1.0); MONOCYTES % (AUTO) 3.9 % (1.7-9.3); NEUTROPHILS # (AUTO) 12.9 K/uL (1.8-7.7); NEUTROPHILS % (AUTO) 92.6 % (40.0-70.0); PLATELET COUNT (AUTO) 239 K/uL (130-430); RED BLOOD CELL COUNT(AUTO) 3.32 MIL/uL (4.2-6.2); RED CELL DISTRIBUTION WIDTH 17.6 % (9.0-15.0); WHITE BLOOD COUNT (AUTO) 13.9 K/uL (4.8-10.8)
[2020-05-28 08:55] VITALS: BP_SYST 104
--- NOTE | 2020-05-28 10:40 | NUR ---
RN ROUNDS: PATIENT IS ASLEEP LAYING DOWN IN BED. PATIENT IS TOLERATING OXYGEN ON 2 L NASAL CANNULA WITH NO SIGNS OF DISTRESS OR SHORTNESS FO BREATH NOTED. IV SITE IS PATENT WITH NO SIGNS OF INFILTRATION NOTED. PATIENT IN STABLE CONDITION. WILL CONTINUE TO MONITOR PATIENT FOR ANY CHANGES.
--- NOTE | 2020-05-28 11:30 | NUR ---
IV INFILTRATION: IV SITE INFILTRATED. NEW IV INSERTED IN LEFT UPPER ARM 22G. PATIENT TOLERATED IT WELL. ASEPTIC TECHNIQUE USED. WILL CONTINUE TO MONITOR PATIENT.
--- NOTE | 2020-05-28 12:13 | NUR ---
RN ROUNDS: PATIENT IS ASLEEP LAYING DOWN IN BED. PATIENT IS TOLERATING OXYGEN ON 2 L NASAL CANNULA WITH NO SIGNS OF DISTRESS OR SHORTNESS OF BREATH NOTED. IV SITE IS PATENT WITH NO SIGNS OF INFILTRATION NOTED. PATIENT IN STABLE CONDITION. WILL CONTINUE TO MONITOR PATIENT FOR ANY CHANGES.
[2020-05-28 12:37] VITALS: BP_SYST 100
--- NOTE | 2020-05-28 13:22 | NUR ---
CONSULTATION PAGED/CALLED Reason for Consultation: [] RENAL DISEASE Person Who was Notified: [] JIMENA Consulting Physician: [] DR RANDI PITTMAN Superintendent Factory Specialty: [] NEPHROLOGY Ordering Physician: [] DR GEE
--- NOTE | 2020-05-28 14:00 | NUR ---
MD ROUNDS: DR. VIRAMONTES MAKING HIS ROUNDS. AWARE OF PATIENT'S CONDITION. NEW ORDERS GIVEN.
[2020-05-28] MEDS ORDERED: ALBUMIN HUMAN 25% 100 ML IV ONE (14:15)
--- NOTE | 2020-05-28 14:16 | NUR ---
CONSULTATION PAGED/CALLED Reason for Consultation: [] ELEVATED WBC Person Who was Notified: [] ANKITA Consulting Physician: [] DR ROSS MCKEON Contour Stitcher Specialty: [] ID Ordering Physician: [] DR VIRAMONTES
[2020-05-28] MEDS: INSULIN REGULAR, HUMAN 100 UNITS/ML, 10 ML VIAL (humuLIN R) SUBCUT PRN ×2 (14:25→17:34)
--- NOTE | 2020-05-28 14:25 | NUR ---
HIGH ALERT NOTE: Spoke with Dr. Rodriges in person identified within the medical roster to verify physician authenticity and received a one time order for 8 units of regular insulin for blood sugar >600.
--- NOTE | 2020-05-28 14:25 | NUR ---
MD ROUNDS: SPOKE WITH DR. PITTMAN REGARDING PATIENT. INFORMED HER OF HER ACCU CHEK FROM THIS MORNING BEING 503 AND NO ONE GAVE COVERAGE. CHECKED ACCU CHEK AND IT SHOWED GREATER THAN 600. DR. PITTMAN STATED TO GIVE 8 UNITS OF COVERAGE. NEW ORDERS RECEIVED FROM .
[2020-05-28] MEDS ORDERED: GLUCOSE (DEXTROSE) ORAL GEL -Adults PO PRN (14:30)
[2020-05-28] MEDS ORDERED: DEXTROSE 50%-WATER 50 ML DISP.SYRIN IVP PRN (14:30)
[2020-05-28] MEDS ORDERED: D5W 1,000 ML IV PRN (14:30)
[2020-05-28] MEDS: 0.45% NACL 1,000 ML IV SCH (14:31)
--- NOTE | 2020-05-28 14:31 | NUR ---
CONSULTATION PAGED/CALLED Reason for Consultation: [] ENCEPHALOPATHY Person Who was Notified: [] DR Ellis PAGAN ON HIS CELL Consulting Physician: [] DR Ellis PAGAN Edi Analyst Specialty: [] NEURO Ordering Physician: [] DR PITTMAN
[2020-05-28] MEDS ORDERED: KETOCONAZOLE 2%, 60 GM TOPICAL CREAM. (NIZORAL) TP SCH (14:45)
[2020-05-28] MEDS ORDERED: ONDANSETRON 4 MG ODT TAB PO PRN (14:45)
[2020-05-28] MEDS: GABAPENTIN 300 MG CAPSULE PO SCH ×2 (15:00→21:00)
--- NOTE | 2020-05-28 15:03 | NUR ---
ENDOCRINE CONSULT FOR DR MCKINLEY WAS DENIED DUE TO INSURANCE. WILL INFORM DR PITTMAN.
--- NOTE | 2020-05-28 15:08 | NUR ---
CONSULTATION PAGED/CALLED Reason for Consultation: [] UPPER GI BLEED Person Who was Notified: [] BLAKE Consulting Physician: [] DR HARGROVE Licensed Journeyman Electrician Specialty: [] GI Ordering Physician: [] DR ST Addendum: 05/28/20 at 1531 by Amada Schmid MT/ PT HAS NO GI CONSULT -- WRONG PT
--- NOTE | 2020-05-28 15:22 | NUR ---
CONSULTATION PAGED/CALLED Reason for Consultation: [] ENCEPHALOPATHY Person Who was Notified: [] DR PAGAN ON HIS CELL Consulting Physician: [] DR Ellis PAGAN Subject Scientific Research Specialty: [] NEURO Ordering Physician: [] RANDI WHITESIDE
[2020-05-28] MEDS: cefTRIAXone 1 GM in D5W 50 ML IV SCH (15:49)
--- NOTE | 2020-05-28 15:49 | NUR ---
VISCOSITY TESTER, DR RANDI PITTMAN WAS CALLED TO INFORM HER THAT DR RANDI PITTMAN DENIED THE CONSULT. SPOKE TO KELSEY.
--- NOTE | 2020-05-28 16:12 | NUR ---
RN ROUNDS: PATIENT IS ASLEEP LAYING DOWN IN BED. PATIENT IS TOLERATING OXYGEN ON 2 L NASAL CANNULA WITH NO SIGNS OF DISTRESS OR SHORTNESS OF BREATH NOTED. IV SITE IS PATENT AND RUNNING FLUIDS ORDERED. PATIENT IN STABLE CONDITION. WILL CONTINUE TO MONITOR PATIENT FOR ANY CHANGES.
--- NOTE | 2020-05-28 16:21 | NUR ---
CONSULTATION PAGED/CALLED Reason for Consultation: [] HYPERGLYCEMIA Person Who was Notified: [] ALAN Consulting Physician: [] DR CORDERO Deep Fryer Assembler Specialty: [] ENDOCRINE Ordering Physician: [] DR RANDI PITTMAN
[2020-05-28 16:54] VITALS: BP_SYST 105
--- NOTE | 2020-05-28 17:29 | NUR ---
HIGH ALERT NOTE: Called Dr. OJEDA back [phone] identified within the medical roster to verify physician authenticity for order of one time insulin dose.
--- NOTE | 2020-05-28 17:29 | NUR ---
PAGED ENDOCRINE MD DR CORDERO FOR BS > 600. SPOKE TO THE EXCHANGE.
--- NOTE | 2020-05-28 17:30 | NUR ---
ATTENDING MD DR RANDI PITTMAN WAS CALL, DR OJEDA PHP ENGINEER AT THIS TIME RE: BS > 600. SPOKE TO MIGUEL
[2020-05-28] MEDS: SEVELAMER CARBONATE 800 MG TABLET PO SCH (17:34)
--- NOTE | 2020-05-28 18:35 | NUR ---
CLOSING NOTES: PATIENT IS ASLEEP LAYING DOWN IN BED. PATIENT IS GETTING DIALYSIS AT THE MOMENT. DIALYSIS NURSE AT BEDSIDE. PATIENT IS ON BILATERAL SOFT ANKLE RESTRAINTS DUE TO PATIENT KICKING AND MESSING UP THE DIALYSIS ACCESS. IV SITE IS PATENT WITH NO SIGNS OF INFILTRATION NOTED AND RUNNING FLUIDS ORDERED. PATIENT IS TOLERATING OXYGEN ON 2 L NASAL CANNULA WITH NO SIGNS OF DISTRESS OR SHORTNESS OF BREATH NOTED. PATIENT IN STABLE CONDITION. SAFETY, FALL AND ASPIRATION PRECAUTIONS REMAINED IN PLACE THROUGHOUT THE SHIFT. BED LOCKED IN LOWEST POSITION WITH CALL LIGHT IN REACH. WILL ENDORSE PATIENT CARE TO ONCOMING BOXER OPERATOR NURSE.
--- NOTE | 2020-05-28 19:30 | NUR ---
OPENING NOTES RECEIVED SBAR REPORT FROM DAY SHIFT RN. PT RESTING IN BED, STILL GETTING DIALYSIS. DIALYSIS NURSE AT THE BEDSIDE. BREATHING EVEN AND UNLABORED TO O2 VIA NC AT 2L. NO S/S OF SHORTNESS OF BREATH NOTED. BED ALARM ON, LOCKED IN LOWEST POSITION. SIDE RAILS UP X3. SAFETY AND FALL PRECAUTIONS ARE IN PLACE. WILL CONTINUE TO MONITOR.
--- NOTE | 2020-05-28 19:39 | NUR ---
HIGH ALERT NOTE: Dr. Perdomo at nursing station and identified within the medical roster to verify physician authenticity for scheduled heparin order.
[2020-05-28 20:00] VITALS: BP_SYST 108
[2020-05-28] MEDS: HEPARIN SODIUM,PORCINE 5,000 UNITS/ML VIAL SUBCUT SCH (22:22)
[2020-05-29] VITALS: BP_SYST 112
--- NOTE | 2020-05-29 00:28 | NUR ---
ACCU-CHECK BLOOD SUGAR OF 214. 4 UNITS OF REGULAR INSULIN ADMINISTERED. NO S/S OF DISTRESS NOTED. BREATHING EVEN AND UNLABORED TO O2 VIA NC AT 2L. IV ON LEFT UPPER ARM 20G, INTACT, IVF RUNNING ORDERED RATE. NO SIGNS OF INFILTRATION NOTED. BED ALARM ON, LOCKED IN LOWEST POSITION. SIDE RAILS UP X3. SAFETY AND FALL PRECAUTIONS ARE IN PLACE. WILL CONTINUE TO MONITOR.
[2020-05-29] MEDS: INSULIN REGULAR, HUMAN 100 UNITS/ML, 10 ML VIAL (humuLIN R) SUBCUT PRN ×4 (00:29→17:59)
[2020-05-29] MEDS: NORMAL SALINE 5 ML DISP.SYRIN IVF SCH ×3 (06:05→22:08)
[2020-05-29] MEDS: LEVOTHYROXINE SODIUM 0.1 MG TABLET PO SCH (06:12)
--- NOTE | 2020-05-29 07:20 | NUR ---
Opening Notes Patient received with eyes closed, responsive to tactile stimuli but does not follow commands. Patient remains quiet when asked questions. Patient on patient monitor with NSR. Patient on 2L oxygen via nasal cannula, breathing evenly and unlabored. Patient has a left arm 20 gauge receiving 1/2 NS at 50 ml/hr. Patient has a left thigh AV fistula for dialysis. Safety precautions enforced.
[2020-05-29 08:00] VITALS: BP_SYST 110
[2020-05-29] MEDS: SEVELAMER CARBONATE 800 MG TABLET PO SCH ×3 (08:00→17:39)
[2020-05-29] MEDS: cefTRIAXone 1 GM in D5W 50 ML IV SCH (08:24)
[2020-05-29] MEDS: METOCLOPRAMIDE HCL 10 MG TABLET PO SCH (09:00)
[2020-05-29] MEDS: ATORVASTATIN 20 MG TABLET PO SCH (09:00)
[2020-05-29] MEDS: GABAPENTIN 300 MG CAPSULE PO SCH ×4 (09:00→22:01)
[2020-05-29] MEDS: PANTOPRAZOLE SODIUM 40 MG TAB PO SCH (09:00)
[2020-05-29] MEDS: SERTRALINE HCL 50 MG TABLET PO SCH (09:00)
[2020-05-29] MEDS: FOLIC ACID 1 MG TABLET PO SCH (09:00)
[2020-05-29] MEDS: METOPROLOL TARTRATE 25 MG TABLET PO SCH (09:00)
[2020-05-29] MEDS: ISOSORBIDE MONONITRATE 30 MG TAB.ER.24H PO SCH (09:00)
[2020-05-29] MEDS: NEPHROVITE, (FOLIC ACID/VITAMIN B COMP W-C 1 TAB) PO SCH (09:00)
[2020-05-29] MEDS ORDERED: LANSOPRAZOLE 30 MG CAPSULE.DR PO SCH (09:00)
[2020-05-29] MEDS: HEPARIN SODIUM,PORCINE 5,000 UNITS/ML VIAL SUBCUT SCH ×2 (09:36→22:05)
[2020-05-29] MEDS ORDERED: levoFLOXacin 250 MG TABLET PO SCH (10:00)
[2020-05-29] MEDS: 0.45% NACL 1,000 ML IV SCH (10:15)
--- NOTE | 2020-05-29 11:37 | NUR ---
CONSULTATION: REASON FOR CONSULT: DESATURATION CONSULTING PHYSICIAN: ALONDRA PHOENIX MD ORDERED BY: VINNY VIRAMONTES MD SPOKE WITH RAMON FROM EXCHANGE [phone]
--- NOTE | 2020-05-29 11:40 | NUR ---
Dialysis consent Spoke with patient's , Rico Brown, regarding consent for dialysis. Patient's agrees to hemodialysis.
[2020-05-29] MEDS ORDERED: ALBUMIN HUMAN 25% 100 ML IV ONE (12:15)
[2020-05-29 12:16] VITALS: BP_SYST 84
--- NOTE | 2020-05-29 12:45 | NUR ---
Hemodialysis feather drying machine operator at bedside at this time for hemodialysis. Patient VSS closely monitored. Albumin 25% x 1 ordered for BP maintenance. Patient remains lethargic, but arousable. Safety precautions enforced.
[2020-05-29 13:25] LABS: BASOPHILS % (AUTO) 0.1 % (0.0-2.0); HEMATOCRIT 28.4 % (36-48); HEMOGLOBIN 9.2 g/dL (12.0-16.0); LYMPHOCYTES # (AUTO) 0.4 K/uL (1.0-5.5); LYMPHOCYTES % (AUTO) 2.3 % (20.5-51.5); MEAN CORPUSCULAR HEMOGLOBIN 31 pg (27-31); MEAN CORPUSCULAR HGB CONC 32 % (32-36); MEAN CORPUSCULAR VOLUME 96 fL (79.0-98.0); NEUTROPHILS # (AUTO) 14.5 K/uL (1.8-7.7); NEUTROPHILS % (AUTO) 91.6 % (40.0-70.0); PLATELET COUNT (AUTO) 228 K/uL (130-430); RED BLOOD CELL COUNT(AUTO) 2.97 MIL/uL (4.2-6.2); RED CELL DISTRIBUTION WIDTH 17.5 % (9.0-15.0); WHITE BLOOD COUNT (AUTO) 15.8 K/uL (4.8-10.8)
[2020-05-29] MEDS ORDERED: IPRATROPIUM/ALBUTEROL SULFATE 3 ML AMPUL.NEB (DUONEB) INH PRN (13:30)
[2020-05-29 13:41] LABS: ALBUMIN 3.5 g/dL (3.4-4.8); CALCIUM 7.8 mg/dL (8.4-11.0); CREATININE 5.33 mg/dL (0.55-1.30); POTASSIUM 4.2 mmol/L (3.5-5.1); TOTAL BILIRUBIN 0.6 mg/dL (0.0-1.0)
--- NOTE | 2020-05-29 14:00 | NUR ---
RN Rounds Patient in no signs of distress at this time. Patient arousable. Patient remains with eyes closed. Safety precautions enforced.
[2020-05-29] MEDS: PIPERACILLIN/TAZO 3.375/DEX-IS 50 ML IV SCH ×2 (15:48→22:08)
--- NOTE | 2020-05-29 16:00 | NUR ---
RN Rounds Patient in no signs of distress at this time. Safety precautions enforced.
[2020-05-29 16:13] VITALS: BP_SYST 121
[2020-05-29 16:15] VITALS: BP_SYST 110
[2020-05-29] MEDS ORDERED: VANCOMYCIN HCL 1 GM/NS PREMIX 250 ML IV ONE (17:00)
--- NOTE | 2020-05-29 18:00 | NUR ---
RN Rounds Patient in no signs of distress at this time. Patient able to respond with one word responses. Safety precautions enforced.
--- NOTE | 2020-05-29 19:25 | NUR ---
Closing Notes Endorsed to third shift lieutenant RN using SBAR format. No signs of distress noted.
--- NOTE | 2020-05-29 19:30 | NUR ---
OPENING NOTES RECEIVED SBAR REPORT FROM DAY SHIFT RN. PT RESTING IN BED. BREATHING EVEN AND UNLABORED TO O2 VIA NC AT 2L. NO S/S OF SHORTNESS OF BREATH NOTED. IV ON LEFT UPPER ARM 22G INTACT, IVF RUNNING ORDERED RATE. NO SIGNS OF INFILTRATION NOTED. BED ALARM ON, LOCKED IN LOWEST POSITION. SIDE RAILS UP X3. SAFETY AND FALL PRECAUTIONS ARE IN PLACE. WILL CONTINUE TO MONITOR.
[2020-05-29 20:00] VITALS: BP_SYST 95
--- NOTE | 2020-05-30 01:05 | NUR ---
HIGH ALERT NOTE: SPOKE WITH DR. MCKEON IN PERSON IDENTIFIED WITHIN THE MEDICAL ROSTER TO VERIFY PHYSICIAN AUTHENTICITY AND RECEIVED A ONE TIME ORDER FOR 10 UNITS OF REGULAR INSULIN.
[2020-05-30] MEDS: INSULIN REGULAR, HUMAN 100 UNITS/ML, 10 ML VIAL (humuLIN R) SUBCUT PRN ×3 (01:10→11:46)
[2020-05-30 01:38] VITALS: BP_SYST 106
--- NOTE | 2020-05-30 02:37 | NUR ---
HIGH ALERT NOTE: Called Dr. VIRAMONTES [phone] back at 0238 identified within the medical roster to verify physician authenticity. Addendum: 05/30/20 at 0242 by Rox Negrete RN DISCARD.
--- NOTE | 2020-05-30 02:38 | NUR ---
HIGH ALERT NOTE: Called Dr. VIRAMONTES [phone] back at 0238 identified within the medical roster to verify physician authenticity, ATIVAN 0.5MG IVP ONE TIME ORDER
[2020-05-30] MEDS ORDERED: LORazepam 2 MG/ML VIAL IVP ONE (02:45)
[2020-05-30] MEDS: LEVOTHYROXINE SODIUM 0.1 MG TABLET PO SCH (06:14)
[2020-05-30] MEDS: PIPERACILLIN/TAZO 3.375/DEX-IS 50 ML IV SCH ×2 (06:14→15:29)
[2020-05-30] MEDS: NORMAL SALINE 5 ML DISP.SYRIN IVF SCH ×2 (06:15→15:29)
[2020-05-30] MEDS: 0.45% NACL 1,000 ML IV SCH (06:19)
[2020-05-30 06:26] LABS: BASOPHILS % (AUTO) 0.5 % (0.0-2.0); HEMATOCRIT 28.3 % (36-48); HEMOGLOBIN 9.3 g/dL (12.0-16.0); LYMPHOCYTES # (AUTO) 0.7 K/uL (1.0-5.5); LYMPHOCYTES % (AUTO) 8.7 % (20.5-51.5); MEAN CORPUSCULAR HEMOGLOBIN 31 pg (27-31); MEAN CORPUSCULAR HGB CONC 33 % (32-36); MEAN CORPUSCULAR VOLUME 96 fL (79.0-98.0); MONOCYTES # (AUTO) 1.1 K/uL (0.0-1.0); MONOCYTES % (AUTO) 12.4 % (1.7-9.3); NEUTROPHILS # (AUTO) 6.7 K/uL (1.8-7.7); NEUTROPHILS % (AUTO) 78.4 % (40.0-70.0); PLATELET COUNT (AUTO) 188 K/uL (130-430); RED BLOOD CELL COUNT(AUTO) 2.96 MIL/uL (4.2-6.2); RED CELL DISTRIBUTION WIDTH 17.5 % (9.0-15.0); WHITE BLOOD COUNT (AUTO) 8.5 K/uL (4.8-10.8)
[2020-05-30 06:38] LABS: CALCIUM 8.4 mg/dL (8.4-11.0); CREATININE 4.09 mg/dL (0.55-1.30); PHOSPHORUS 2.2 mg/dL (2.7-4.5); POTASSIUM 3.1 mmol/L (3.5-5.1)
--- NOTE | 2020-05-30 06:46 | NUR ---
NOTIFIED DR. VIRAMONTES REGARDING PT BLOOD SUGAR OF 432. DR. VIRAMONTES STATED THAT FOLLOW THE SLIDING SCALE AND IT IS OKAY TO ADMINISTER 12 UNITS OF REGULAR INSULIN (SLIDING SCALE).
--- NOTE | 2020-05-30 07:01 | NUR ---
CLOSING NOTES PT RESTING IN BED. BREATHING EVEN AND UNLABORED TO O2 VIA NC AT 2L. NO S/S OF SHORTNESS OF BREATH NOTED. IV ON LEFT UPPER ARM 22G INTACT, IVF RUNNING ORDERED RATE. NO SIGNS OF INFILTRATION NOTED. BED ALARM ON, LOCKED IN LOWEST POSITION. SIDE RAILS UP X3. SAFETY AND FALL PRECAUTIONS ARE IN PLACE. ALL NEEDS ARE MET THROUGHOUT SHIFT. WILL CONTINUE TO MONITOR UNTIL ENDORSE TO DAY SHIFT RN.
--- NOTE | 2020-05-30 07:38 | NUR ---
OPENING NOTE Patient resting in the bed. No acute distress. On O2 2L/min via NC. Skin warm and dry to touch. IV intact to ANA, no redness, no swelling, no drainage. On 1/2 NS at 50ml/hr, infusing well. AV shun intact to left thigh with thrill/bruit present, no bleeding. Safety measure maintained. Bed locked in low position, side rails up, bed alarm on. Call light within reached. Will continue to monitor.
--- NOTE | 2020-05-30 07:40 | NUR ---
CRITICAL LAB:[id number] Called and reported to Na Shepard, [id number]=[id number] with no new order.
[2020-05-30 07:45] VITALS: BP_SYST 113
[2020-05-30] MEDS: PANTOPRAZOLE SODIUM 40 MG TAB PO SCH (08:24)
[2020-05-30] MEDS: NEPHROVITE, (FOLIC ACID/VITAMIN B COMP W-C 1 TAB) PO SCH (08:24)
[2020-05-30] MEDS: GABAPENTIN 300 MG CAPSULE PO SCH ×2 (08:24→15:29)
[2020-05-30] MEDS: SEVELAMER CARBONATE 800 MG TABLET PO SCH ×3 (08:24→17:58)
[2020-05-30] MEDS: ATORVASTATIN 20 MG TABLET PO SCH (08:25)
[2020-05-30] MEDS: METOPROLOL TARTRATE 25 MG TABLET PO SCH (08:25)
[2020-05-30] MEDS: SERTRALINE HCL 50 MG TABLET PO SCH (08:25)
[2020-05-30] MEDS: FOLIC ACID 1 MG TABLET PO SCH (08:26)
[2020-05-30] MEDS: ISOSORBIDE MONONITRATE 30 MG TAB.ER.24H PO SCH (08:26)
[2020-05-30] MEDS: METOCLOPRAMIDE HCL 10 MG TABLET PO SCH (08:27)
[2020-05-30] MEDS: HEPARIN SODIUM,PORCINE 5,000 UNITS/ML VIAL SUBCUT SCH (08:29)
--- NOTE | 2020-05-30 08:41 | NUR ---
POTASSIUM=3.1 Dialysis nurse, Alka RN arrived in patient's room. Informed to Alka, patient's K=3.1 and copy of lab result given. Per Alka she will adjust on high flow potassium when doing dialysis.
--- NOTE | 2020-05-30 08:43 | NUR ---
HEMODIALYSIS STARTED Patient resting in the bed. No acute distress. Continue on O2 2L/min via NC. Hemodialysis started, dialysis nurse stay at bedside. Safety measure maintained. Call light within reached. Continue to monitor.
[2020-05-30] MEDS ORDERED: K PHOS 30 MM in NS 250 ML IV ONE (09:45)
--- NOTE | 2020-05-30 09:50 | NUR ---
SEEN AND EXAMINED BY DAKSHA OLGUIN WITH ORDER RECEIVED.
--- NOTE | 2020-05-30 10:46 | NUR ---
HEMODIALYSIS COMPLETED Patient resting in the bed. No acute distress. Continue on O2 2L/min via NC. VS stable. UU=715/56. Report given by Alka dye house helper, 1 L out. Patient tolerated well. AV shunt intact with dressing, no bleeding note. Safety measure maintained. Call light within reached. Bed locked in low position, side rails up, bed alarm on. Continue to monitor.
--- NOTE | 2020-05-30 11:42 | NUR ---
VINNY CAMILO Dr. making rounds. Informed to Dr. Perdomo, Dorota Thompson not coming to [facility]. Dr. Perdomo stated "that's fine, the patient stable now".
--- NOTE | 2020-05-30 11:51 | NUR ---
KQ=741 Humulin R insulin 2 units given per sliding scale. Patient resting in the bed. No acute distress. Continue on O2 2L/min via NC. Safety measure maintained. Call light within reached. Bed locked in low position, side rails up, bed alarm on. Continue to monitor.
--- NOTE | 2020-05-30 12:15 | NUR ---
Spoke w/ Dr Juarez to SNF-sent clinical info to Felicitas at [employer]-[phone]-she will find contracted SNF for patient
[2020-05-30 12:22] VITALS: BP_SYST 126
--- NOTE | 2020-05-30 12:41 | NUR ---
Discharge Planning: DCP faxed pt referral to Hollis villanueva [facility] ([phone]) DCP to follow up.
--- NOTE | 2020-05-30 13:20 | NUR ---
ROUND Patient resting in the bed with eye closed. No acute distress. Continue on o2 2L/min via NC. Safety measure maintained. Call light within reached. Bed locked in low position, side rails up, bed alarm on. Continue to monitor.
--- NOTE | 2020-05-30 15:05 | NUR ---
Spoke to patient's - he agreed to dc to [facility].Please call when pt is discharged. Dr Perdomo gave dc order to [facility]. Will notify RN of time of ambulance orange picker machine operator.
--- NOTE | 2020-05-30 15:48 | NUR ---
Pt to DC to [facility] at 6 PM by [facility] . Room [id number] for report [phone]-ask for station #1. Please call the patient's when she leaves and let him know the time she left
[2020-05-30 17:36] VITALS: BP_SYST 110
[2020-05-30 18:03] VITALS: BP_SYST 112
[2020-05-30] MEDS ORDERED: PIPE3.379 IV (18:08)
--- NOTE | 2020-05-30 18:12 | NUR ---
TRANSFER ACKNOWLEDGEMENT TELEPHONE CONSENT OBTAINED FROM YUDELKA MYERS.
--- NOTE | 2020-05-30 18:25 | NUR ---
REPORT GIVEN TO [facility], LASHAY DICKERSON.
--- NOTE | 2020-05-30 18:50 | NUR ---
CLOSING NOTE Patient resting in the bed. No acute distress. On O2 2L/min via NC. Skin warm and dry to touch. IV intact to ANA, no redness, no swelling, no drainage. On 1/2 NS at 50ml/hr, infusing well. AV shun intact to left thigh with thrill/bruit present, no bleeding. Al needs met. Safety measure maintained. Bed locked in low position, side rails up, bed alarm on. Call light within reached. Will endorse to night nurse.
[2020-05-30 20:00] VITALS: BP_SYST 115
--- NOTE | 2020-05-30 20:45 | NUR ---
pt.transferred to [facility].ilda conveyed the pt's report/data to belen.i have attended to the pt's adl's needs.i have cleaned the pt.i have placed the sdch white transfer band.i have assessed the blood glucose.transfer consent per pt's . i have reviewed th pt's pertenences;wheel chair,clothing.all pertenences accounted for.sent w pt.v/s stable.no c/o pain,nausea.pt.transferred in stable status.
== END 2020-05-30 20:55 | DRG 70 ==
LOC: SED 16:51 → STU 05-28 04:25
PROVIDERS: ADMIT Internal Medicine; ATTEND Internal Medicine
PROC: 5A1D70Z Performance of Urinary Filtration, Intermittent, Less than 6 Hours Per Day (ICD-10-PCS; principal; 2020-05-28)
PROC: 5A1D70Z Performance of Urinary Filtration, Intermittent, Less than 6 Hours Per Day (ICD-10-PCS; 2020-05-29)
PROC: 5A1D70Z Performance of Urinary Filtration, Intermittent, Less than 6 Hours Per Day (ICD-10-PCS; 2020-05-30)
PROC: 05HY33Z Insertion of Infusion Device into Upper Vein, Percutaneous Approach (ICD-10-PCS; 2020-05-30)
DX: G93.41 Metabolic encephalopathy (principal); N18.6 End stage renal disease; I12.0 Hypertensive chronic kidney disease with stage 5 chronic kidney disease or end stage renal disease; E11.22 Type 2 diabetes mellitus with diabetic chronic kidney disease; F03.90 Unspecified dementia, unspecified severity, without behavioral disturbance, psychotic disturbance, mood disturbance, and anxiety; J44.9 Chronic obstructive pulmonary disease, unspecified; I95.9 Hypotension, unspecified; Z20.828 Contact with and (suspected) exposure to other viral communicable diseases; K21.9 Gastro-esophageal reflux disease without esophagitis; E11.65 Type 2 diabetes mellitus with hyperglycemia; Z79.899 Other long term (current) drug therapy; Z86.73 Personal history of transient ischemic attack (TIA), and cerebral infarction without residual deficits
CPT/HCPCS: 36415; 36600; 70450-TC; 71045; 80048; 80053; 82140-TC; 82803-TC; 82962; 83605; 83880; 84100-TC; 84439; 84443-TC; 84484; 85025; 85610-TC; 85730-TC; 87040-TC; 87081; 90935; 90937; 93005; 93970; 96374; 96376; 99285; G0378; J0696; J1644; J1815; J2060; J2405; J2543; J3370; J7030; J7050; J7060; J8597

== ENCOUNTER 2020-06-16 13:18 | Inpatient (IN) | payer OTHER, SELFPAY ==
[~2020-06-16] VITALS: Ht 144.8 cm; Wt 44.1 kg
[~2020-06-16 13:18] MED LIST changes: -LEVO250T58 PO; +PIPE3.379 IV
[2020-06-16 13:28] VITALS: BP_SYST 127
--- NOTE | 2020-06-16 13:38 | NUR ---
Patient to ER bed 5 to gown for evaluation. Side rails up. Report given to Vladimir DICKERSON.
--- NOTE | 2020-06-16 14:00 | NUR ---
ER at bedside examining patient.
[2020-06-16] MEDS ORDERED: ASA81 PO (14:06)
[2020-06-16] MEDS ORDERED: VITD2000 PO (14:06)
[2020-06-16] MEDS ORDERED: CALC-939 PO (14:06)
[2020-06-16] MEDS ORDERED: ERGO2000 (14:06)
--- NOTE | 2020-06-16 14:06 | NUR ---
Pt brought by to ER for increased lethargy x1week. Pt alert and oriented, resting in gurney, O2 WNL on 3L by nasal cannula to evaluate.
[2020-06-16] MEDS ORDERED: cefTRIAXone 1 GM IVPB PREMIX 50 ML IV ONE (14:15)
[2020-06-16] MEDS ORDERED: ACETAMINOPHEN 325 MG TABLET PO ONE (14:15)
--- NOTE | 2020-06-16 14:18 | NUR ---
hematology technologist at bedside for portable CXR.
--- NOTE | 2020-06-16 14:20 | NUR ---
Attempted to obtain urine from pt, she stated she is anuric will let know
--- NOTE | 2020-06-16 14:36 | NUR ---
food technologist at bedside to transport patient to CT scan via wheelchair.
[2020-06-16 14:48] LABS: ANION GAP 8 (5-15); BASOPHILS % (AUTO) 0.4 % (0.0-2.0); CALCIUM 8.6 mg/dL (8.4-11.0); CHLORIDE 94 mmol/L (98-107); CREATININE 5.77 mg/dL (0.55-1.30); EOSINOPHILS % (AUTO) 0.2 % (0.0-4.0); GLUCOSE 184 mg/dL (70-99); HEMATOCRIT 29.1 % (36-48); HEMOGLOBIN 9.6 g/dL (12.0-16.0); LYMPHOCYTES # (AUTO) 0.5 K/uL (1.0-5.5); LYMPHOCYTES % (AUTO) 17.8 % (20.5-51.5); MEAN CORPUSCULAR HEMOGLOBIN 31 pg (27-31); MEAN CORPUSCULAR HGB CONC 33 % (32-36); MEAN CORPUSCULAR VOLUME 95 fL (79.0-98.0); MONOCYTES # (AUTO) 0.4 K/uL (0.0-1.0); MONOCYTES % (AUTO) 15.5 % (1.7-9.3); NEUTROPHILS # (AUTO) 1.8 K/uL (1.8-7.7); NEUTROPHILS % (AUTO) 66.1 % (40.0-70.0); PLATELET COUNT (AUTO) 151 K/uL (130-430); POTASSIUM 5.4 mmol/L (3.5-5.1); RED BLOOD CELL COUNT(AUTO) 3.05 MIL/uL (4.2-6.2); RED CELL DISTRIBUTION WIDTH 18.7 % (9.0-15.0); SODIUM SERUM 134 mmol/L (136-145); UREA NITROGEN, BLOOD 21 mg/dL (8-21); WHITE BLOOD COUNT (AUTO) 2.7 K/uL (4.8-10.8)
[2020-06-16 14:49] LABS: INR 1.2 (0.8-1.2)
[2020-06-16 14:54] LABS: GFR AFRICAN AMERICAN 10 mL/min (>90)
[2020-06-16 14:58] LABS: ALANINE AMINOTRANSFERASE 30 U/L (12-78); ALBUMIN 3.5 g/dL (3.4-4.8); ASPARTATE AMINOTRANSFERASE 70 U/L (10-37); FREE T4 (FREE THYROXINE) 1.8 ng/dl (0.8-1.5); TOTAL BILIRUBIN 0.8 mg/dL (0.0-1.0)
[2020-06-16 15:00] LABS: ALCOHOL, BLOOD < 3 mg/dL (<10)
[2020-06-16] MEDS ORDERED: SODIUM BICARBONATE 8.4% JECT 50 MEQ/50 ML SYRINGE IVP ONE (15:15)
[2020-06-16] MEDS ORDERED: SODIUM POLYSTYRENE SULFONATE 15 GM/60 ML UDBTL PO ONE (15:15)
[2020-06-16] MEDS ORDERED: INSULIN REGULAR, HUMAN 10 UNITS/0.1 ML INJ IVP ONE (15:15)
[2020-06-16] MEDS ORDERED: CALCIUM CHLORIDE 1 GM/10ML VIAL (13.6 mEq Ca++/VIAL) IVP ONE (15:15)
[2020-06-16] MEDS ORDERED: DEXTROSE 50% JECT 50 ML DISP.SYRIN IVP ONE (15:15)
--- NOTE | 2020-06-16 15:39 | NUR ---
Calcium chloride 1 amp given slow IVP.
[2020-06-16] MEDS ORDERED: INSULIN REGULAR, HUMAN 10 UNITS/0.1 ML INJ ONE (15:41)
--- NOTE | 2020-06-16 16:09 | NUR ---
[facility] case resource manager, Maria Guadalupe, requested fax of facesheet and clinicals. fax: [phone]
--- NOTE | 2020-06-16 16:16 | NUR ---
Dr. Hemphill, [facility], called back to speak with Dr. Bellamy regarding pt status. call transfered to Dr. Bellamy. Addendum: 06/16/20 at 1629 by SDEDSM GAVE AUTH TO ADMIT AUTH #: [id number]
--- NOTE | 2020-06-16 16:28 | NUR ---
called for a tele bed. Spoke w/ Angela. Staed that Kalyn will call w/ a bed assignement
[2020-06-16] MEDS ORDERED: ONDANSETRON HCL 4 MG/2 ML VIAL IVP PRN (16:30)
[2020-06-16] MEDS ORDERED: AZITHROMYCIN 500 MG in NS 250 ML IV ONE (16:30)
[2020-06-16] MEDS ORDERED: AZITHROMYCIN 500 MG/VIAL (ZITHROMAX) IV ONE ×2 (16:55)
--- NOTE | 2020-06-16 17:24 | NUR ---
Patient will be admitted to care of Dr. Perdomo. Admitted to telemetry unit. Will go to room 124. Belongings list completed. Complete and up to date summary report printed. SBAR report to be given at bedside with opportunity for questions.
--- NOTE | 2020-06-16 17:34 | NUR ---
CONSULTATION PAGED/CALLED Reason for Consultation: [] ESRD, HD MGMT Person Who was Notified: [] JOHN Consulting Physician: [] DR GEE Benefits Administrator Specialty: [] NEPHRO Ordering Physician: [] DR VIRAMONTES
--- NOTE | 2020-06-16 17:35 | NUR ---
ADMISSION NOTE Received patient from ER via gurvincent, received report from RN. Patient admitted with diagnosis of ESRD. Patient oriented to hospital routine, call light, toileting and safety-patient verbalized understanding.
--- NOTE | 2020-06-16 17:36 | NUR ---
CONSULTATION PAGED/CALLED Reason for Consultation: [] SEPSIS Person Who was Notified: [] JACKELIN Consulting Physician: [] DR ROSS MCKEON Rounding And Backing Machine Operator Specialty: [] ID Ordering Physician: [] DR VIRAMONTES
[2020-06-16 18:16] VITALS: BP_SYST 99
--- NOTE | 2020-06-16 18:57 | NUR ---
Closing note: Patient is stable resting on bed. Still having small watery stool. Refused to eat now.
[2020-06-16 21:00] VITALS: BP_SYST 149
--- NOTE | 2020-06-16 21:15 | NUR ---
SPOKE WITH DR. GEE EARLIER, ASKING ABOUT PATIENT'S DIALYSIS CENTER AND HEMODIALYSIS , ASKED PATIENT: [facility], DR. BYRON CERON, CONFIRMED WITH YUDELKA. ASKED GRAIN PROCESSOR TO PAGE DR. GEE TO LET HIM KNOW.
--- NOTE | 2020-06-16 21:37 | NUR ---
Rafa Bennett s/w Jak
--- NOTE | 2020-06-16 21:55 | NUR ---
SPOKE WITH PATIENT'S , YUDELKA , HE WANTS ADMITTING MD AND CONSULTS TO GIVE HIM UPDATES REGARDING THE PATIENT'S STATUS/PLAN OF CARE.
--- NOTE | 2020-06-16 23:20 | NUR ---
SPOKE WITH DR. VIRAMONTES, NOTIFIED THAT PATIENT USUALLY CHECKS BS AT HOME AND USES INSULIN PUMP AT HOME, MD ORDERED FOR ACCUCHECKS Q6H, AND REGULAR INSULIN SLIDING SCALE.
[2020-06-17] VITALS (7 sets, daily range): BP systolic 120–148
[2020-06-17] MEDS: INSULIN REGULAR, HUMAN 100 UNITS/ML, 10 ML VIAL (humuLIN R) SUBCUT PRN ×3 (00:15→17:35)
--- NOTE | 2020-06-17 00:22 | NUR ---
BS WAS CHECKED EARLIER AND RESULT WAS 412, 12 UNITS OF INSULIN WAS GIVEN. SPOKE DIRECTLY WITH DR. MCKEON WHO WAS DOING ROUNDS, NOTIFIED OF BS RESULT, INSULIN GIVEN, AND CREATININE, SAID "THAT'S OK," NO NEW ORDERS GIVEN.
--- NOTE | 2020-06-17 03:33 | NUR ---
Rafa Sauer s/w Coco
--- NOTE | 2020-06-17 03:35 | NUR ---
SPOKE WITH WENCESLAO FROM PHARMACY AT 0330, HE SAID THAT ORDERED CEFEPIME BUT PATIENT CURRENTLY HAS ROCEPHIN, BOTH MEDICATIONS CANNOT BE GIVEN TOGETHER. SPOKE WITH DR. MIKE MD ORDERED TO DC THE ROCEPHIN AND TO GO AHEAD AND GIVE THE CEFEPIME.
[2020-06-17] MEDS ORDERED: CEFEPIME 1 GM/VIAL (MAXIPIME) ONE (04:13)
[2020-06-17] MEDS: CEFEPIME 1 GM in D5W 50 ML IV SCH (04:30)
--- NOTE | 2020-06-17 06:10 | NUR ---
CLOSING NOTES Patient resting in bed, eyes closed, breathing evenly and nonlabored on 2L of oxygen via NC. BS was checked earlier, no coverage was needed. Hygiene care was done, patient insists on making a "makeshift" diaper with the chucks secured with tape, educated patient on possible side effects such as skin breakdown and no diaper policy, patient stated understanding but still insisted.Patient denies any pain or SOB at this time. Needs met throughout the shift. Fall/safety/isolation/aspiration precautions, will endorse care to morning shift RN.
--- NOTE | 2020-06-17 07:30 | NUR ---
OPENING NOTES: RECEIVED PATIENT FROM DERRICK BOAT OPERATOR NURSE. PATIENT IS ASLEEP LAYING DOWN IN BED. PATIENT IS TOLERATING OXYGEN ON 2 L NASAL CANNULA WITH NO SIGNS OF DISTRESS OR SHORTNESS OF BREATH NOTED. IV SITE IS PATENT WITH NO SIGNS OF INFILTRATION NOTED. AV SHUNT INTACT WITH CLEAN, DRY DRESSING. PATIENT IN STABLE CONDITION. SAFETY, FALL, ASPIRATION, CONTACT AND DROPLET PRECAUTIONS ARE IN PLACE. BED LOCKED IN LOWEST POSITION WITH CALL LIGHT IN REACH. WILL CONTINUE TO MONITOR PATIENT FOR ANY CHANGES.
--- NOTE | 2020-06-17 08:53 | NUR ---
CALLED: SPOKE WITH DR. GEE. HE STATED TO PUT IN A CONSULT WITH DR. BYRON CERON FOR DIALYSIS. WILL FOLLOW THROUGH WITH ORDERS.
[2020-06-17] MEDS ORDERED: AZITHROMYCIN 500 MG in NS 250 ML IV SCH (09:00)
[2020-06-17] MEDS ORDERED: cefTRIAXone 1 GM VIAL IV SCH (09:00)
[2020-06-17] MEDS ORDERED: cefTRIAXone 1 GM VIAL IM SCH (09:00)
--- NOTE | 2020-06-17 09:08 | NUR ---
CONSULTATION PAGED/CALLED Reason for Consultation: dialysis Person Who was Notified: domingo Consulting Physician: Mode [employer] Sales Consultant Specialty: Ordering Physician: kelsy mckoy
--- NOTE | 2020-06-17 09:58 | NUR ---
FAMILY CALLED: SPOKE WITH YUDELKA. ANSWERED ALL QUESTIONS TO THE BEST OF MY ABILITY. WILL KEEP HIM UPDATED.
--- NOTE | 2020-06-17 10:03 | NUR ---
RN ROUNDS: PATIENT IS ASLEEP LAYING DOWN IN BED. PATIENT IS TOLERATING OXYGEN ON 2 L NASAL CANNULA WITH NO SIGNS OF DISTRESS OR SHORTNESS OF BREATH NOTED. IV SITE IS PATENT. PATIENT IN STABLE CONDITION. WILL CONTINUE TO MONITOR PATIENT FOR ANY CHANGES.
--- NOTE | 2020-06-17 10:20 | NUR ---
MD ROUNDS: DR. PITTMAN MAKING HER ROUNDS. AWARE OF PATIENT'S CONDITION. NEW ORDERS GIVEN.
--- NOTE | 2020-06-17 10:29 | NUR ---
Nutrition Update Manuel Scale 14 noted. Pt admitted for sepsis, ESRD. Diet: 2 gm Na BMI: 23.2 kg/m2 RD to follow per nutrition care standards.
--- NOTE | 2020-06-17 12:40 | NUR ---
RN ROUNDS: PATIENT IS AWAKE AND ALERT x4 LAYING DOWN IN BED. PATIENT DENIES ANY PAIN AT THE MOMENT. PATIENT WAS CLEANED AND REPOSITIONED TO EAT LUNCH. PATIENT TOLERATED IT WELL AND REFUSED TO EAT ANY LUNCH. IV SITE IS PATENT WITH NO SIGNS OF INFILTRATION NOTED. PATIENT STATES SHE IS WARM. BLANKETS REMOVED AND A COLD WASH CLOTH WAS PLACED ON THE PATIENT'S FOREHEAD. PATIENT STATED SHE WAS OKAY. PATIENT IN STABLE CONDITION. WILL CONTINUE TO MONITOR PATIENT FOR ANY CHANGES.
--- NOTE | 2020-06-17 14:07 | NUR ---
SEWER PIPE LAYER ROUNDS: DR. VIRAMONTES'S SEWER PIPE LAYER, CHAPO BHARDWAJ MAKING HER ROUNDS. AWARE OF PATIENT'S CONDITION. INFORMED SEWER PIPE LAYER OF THE NEED FOR MEDICATION RECONCILIATION TO BE DONE WELL A NEED FOR TYLENOL. SEWER PIPE LAYER STATED SHE WILL DO IT. WILL AWAIT FOR ORDERS.
--- NOTE | 2020-06-17 14:10 | NUR ---
RN ROUNDS: PATIENT IS ASLEEP LAYING DOWN IN BED. PATIENT IS TOLERATING OXYGEN ON 2 L NASAL CANNULA WITH NO SIGNS OF DISTRESS OR SHORTNESS OF BREATH NOTED. IV SITE IS PATENT WITH NO SIGNS OF DISTRESS OR SHORTNESS OF BREATH NOTED. PATIENT IN STABLE CONDITION. WILL CONTINUE TO MONITOR PATIENT FOR ANY CHANGES.
--- NOTE | 2020-06-17 14:38 | NUR ---
DIALYSIS: DIALYSIS NURSE AT BEDSIDE DOING DIALYSIS. WILL CONTINUE TO MONITOR. Addendum: 06/17/20 at 1528 by Angie Jimenes RN 1527: DIALYSIS NURSE STATES HE NEEDS TO TERMINATE DIALYSIS DUE TO THE LEFT ARTERIAL SHUNT NOT WORKING PROPERLY. HE STATES HE KEEPS GETTING AIR. DIALYSIS NURSE IS CALLING DR. PITTMAN TO INFORM HER. I WILL ALSO PAGE HER WELL.
--- NOTE | 2020-06-17 18:31 | NUR ---
CLOSING NOTES: PATIENT IS AWAKE AND ALERT x4 LAYING DOWN IN BED. PATIENT IS TOLERATING OXYGEN ON 2 L NASAL CANNULA WITH NO SIGNS OF DISTRESS OR SHORTNESS OF BREATH NOTED. PATIENT WAS CLEANED AND REPOSITIONED. PATIENT TOLERATED IT WELL. PATIENT REFUSED TO EAT DINNER AT THIS MOMENT. PATIENT DID WANT CRANBERRY JUICE AND TOLERATED IT WELL. IV SITE IS PATENT WITH NO SIGNS OF INFILTRATION NOTED. AV SHUNT INTACT WITH CLEAN, DRY DRESSING. PATIENT IN STABLE CONDITION. SAFETY, FALL, ASPIRATION, CONTACT AND DROPLET PRECAUTIONS REMAINED IN PLACE THROUGHOUT THE SHIFT. BED LOCKED IN LOWEST POSITION WITH CALL LIGHT IN REACH. WILL ENDORSE PATIENT CARE TO ONCOMING DESIGN EDITOR NURSE.
[2020-06-17] MEDS: AZITHROMYCIN 500 MG in NS 250 ML IV SCH (21:00)
--- NOTE | 2020-06-18 01:30 | NUR ---
IV ON THE LEFT AC LEAKING, DISCONTINUED, IV CATHETER INTACT, PATIENT TOLERATED IT WELL. IV RESTARTED ON THE RIGHT FOREARM 22G, PATENT AND BENIGN, PATIENT TOLERATED IT WELL. NO OTHER NEEDS AT THIS TIME, FALL/SAFETY/ASPIRATION/ISOLATION PRECAUTIONS, WILL CONTINUE TO MONITOR.
[2020-06-18] MEDS: CEFEPIME 1 GM in D5W 50 ML IV SCH (03:50)
[2020-06-18 04:00] VITALS: BP_SYST 142
[2020-06-18] MEDS: INSULIN REGULAR, HUMAN 100 UNITS/ML, 10 ML VIAL (humuLIN R) SUBCUT PRN ×4 (05:30→23:52)
--- NOTE | 2020-06-18 06:00 | NUR ---
CLOSING NOTES Patient resting in bed, awake, breathing evenly and nonlabored on 2L of oxygen via NC. Still Pump Operator at bedside. BS was checked Q6H for the assistant casino shift manager, no coverage was needed at midnight, coverage was needed and given at 0530. Scheduled medications were given when due, patient tolerated them well. IV on the right forearm 22g still patent and benign, no s/s of infection or infiltration noted at this time. Hygiene care was done. Patient appears more awake this morning than last night, patient was lethargic with no appetite last night. Patient denies any pain or SOB at this time. Patient asked for help to call her Rico later this morning. Needs met throughout the shift. Fall/safety/isolation/aspiration precautions, will endorse care to morning shift RN.
[2020-06-18 07:10] LABS: BASOPHILS % (AUTO) 1.1 % (0.0-2.0); HEMATOCRIT 26.7 % (36-48); HEMOGLOBIN 8.6 g/dL (12.0-16.0); LYMPHOCYTES # (AUTO) 0.2 K/uL (1.0-5.5); MEAN CORPUSCULAR HEMOGLOBIN 31 pg (27-31); MEAN CORPUSCULAR HGB CONC 32 % (32-36); MEAN CORPUSCULAR VOLUME 95 fL (79.0-98.0); MONOCYTES # (AUTO) 0.1 K/uL (0.0-1.0); NEUTROPHILS # (AUTO) 2.2 K/uL (1.8-7.7); NEUTROPHILS % (AUTO) 87.9 % (40.0-70.0); PLATELET COUNT (AUTO) 112 K/uL (130-430); RED CELL DISTRIBUTION WIDTH 19.3 % (9.0-15.0); WHITE BLOOD COUNT (AUTO) 2.5 K/uL (4.8-10.8)
--- NOTE | 2020-06-18 08:00 | NUR ---
OPENING NOTES PT IS RESTING IN BED, CHEST RISE AND FALL NOTED. NONLABORED BREATHING NOTED, RECEIVING O2 AT 2LPM VIA NASAL CANNULA, TOLERATING WELL. EASILY AWAKEN. NO ACUTE DISTRESS NOTED. ALL NEEDS MET. CALL LIGHT IN REACH. FALL AND ASPIRATION PRECAUTIONS IN PLACE. CONTINUE TO MONITOR.
[2020-06-18 09:00] VITALS: BP_SYST 137
[2020-06-18 09:20] LABS: POTASSIUM 4.8 mmol/L (3.5-5.1)
[2020-06-18 09:21] LABS: ALBUMIN 2.9 g/dL (3.4-4.8); CALCIUM 7.9 mg/dL (8.4-11.0); TOTAL BILIRUBIN 0.6 mg/dL (0.0-1.0)
--- NOTE | 2020-06-18 10:00 | NUR ---
PT AWAKE ALERT AND ORIENTED X2. IV LINE INTACT AND PATENT, NO SIGNS OF INFILTRATION NOTED. PT HAS RIGHT BLACK TIE UP FOR ANKLE/FOOT, PT REFUSES TO HAVE IT TAKEN IT OFF, EDUCATION GIVEN ON ASSESSING, PT CONTINUE TO REFUSE. PT CURRENTLY RECEIVING DIALYSIS.
[2020-06-18 10:18] LABS: CREATININE 9.5 mg/dL (0.55-1.30)
--- NOTE | 2020-06-18 10:26 | NUR ---
RECEIVED CRITICAL LAB FOR ELEVATED CREATININE, PAGED DR. GEE
--- NOTE | 2020-06-18 10:40 | NUR ---
SPOKE TO DR. GEE, STATED TO CALL DR. CERON, PAGED DR. CERON, SPOKE TO EXCHANGE DEDRICK. STATED DR. JACOBSEN IS ON-CALL.
--- NOTE | 2020-06-18 11:02 | NUR ---
SPOKE TO DR. JACOBSEN, NO NEW ORDERS RECEIVED. PT IS CURRENTLY RECEIVING DIALYSIS.
--- NOTE | 2020-06-18 11:14 | NUR ---
PAGED DR. VIRAMONTES REGARDING RECONCILING MEDS, DVT PROPHYLAXIS AND SEVERE SEPSIS PROTOCOL, SPOKE TO EXCHANGE DEEPTHI.
--- NOTE | 2020-06-18 11:25 | NUR ---
Dietitian Recommendations *Recommend: [facility] Standard diet w/ Nepro BID. ONS will provide additional 850 kcal, 38gm protein daily. *Encourage pt to increase PO intake. Please see Nutritional Assessment for details. ROSITA, JOANNA
[2020-06-18 13:00] VITALS: BP_SYST 156
--- NOTE | 2020-06-18 13:10 | NUR ---
SEEN BY DR. MCKEON AT BEDSIDE. STATED TO WEAN PT OFF O2, REMOVED NASAL CANNULA, O2 DROPPED TO 89%, PT BACK ON NASAL CANNULA AT 2LPM, O2 AT 94%. ACCUCHECK DONE, INSULIN COVERAGE ADMINISTERED PER SLIDING SCALE. GAVE PT NEPHRO ENSURE, PT DRANK A SMALL AMOUNT AT FIRST AND SWALLOWED AFTER 10 MINUTES, BUT UNABLE TO OPEN MOUTH FOR STRAW AFTER FOLLOWING ATTEMPTS. ATTEMPTED TO FEED PT, PT DID NOT OPEN MOUTH FOR FOOD. WILL SPEAK TO MD. CONTINUE TO MONITOR. Addendum: 06/18/20 at 1400 by Betzy Gallegos RN DR. MCKEON AWARE OF [facility]
[2020-06-18] MEDS ORDERED: ACETAMINOPHEN 325 MG TABLET PO PRN (13:15)
--- NOTE | 2020-06-18 13:53 | NUR ---
SPOKE TO DR. WANDER MD AWARE OF TEMP OF 100.4, PT UNABLE TO SWALLOW AT THIS TIME, ALTERED LOC, PT UNABLE TO STATE NAME, PLACE, OR TIME AT THIS TIME; PT WAS ABLE TO STATE NAME AND PLACE THIS EARLIER THIS AM, NO DVT PROPHYLAXIS ORDERED DUE TO LOW HGB/HCT/PLATELETS; AWARE OF MED RECON. RECEIVED ORDERS FOR SWALLOW EVAL, VERIFIED, AND CARRIED OUT. Addendum: 06/18/20 at 1400 by Betzy Gallegos RN ALSO AWARE OF SEVERE SEPSIS RISK
--- NOTE | 2020-06-18 15:40 | NUR ---
CLEANED PT, TOLERATED WELL. PT CLEAN AND DRY. CONTINUE TO MONITOR.
--- NOTE | 2020-06-18 15:48 | NUR ---
SPOKE TO DR. MCKEON REGARDING PT'S ABG RESULTS, RECEIVED ORDERS, VERIFIED, AND CARRIED OUT.
--- NOTE | 2020-06-18 15:50 | NUR ---
Spoke w/ CM from [facility]-no plans to transfer pt to in network facility at this time.
[2020-06-18 16:00] VITALS: BP_SYST 127
[2020-06-18] MEDS: DEXAMETHASONE SOD PHOSPHATE 10 MG/ML VIAL IVP SCH (17:00)
--- NOTE | 2020-06-18 17:30 | NUR ---
ROUTINE MEDS ADMINISTERED ORDERED PER MD AND ACCUCHECK DONE, INSULIN COVERAGE ADMINISTERED PER SLIDING SCALE. PT BEGAN SPEAKING, ALERT AND ORIENTED TO NAME. ABLE TO FINISH NEPHRO ENSURE AND SWALLOW WELL. CONTINUE TO MONITOR.
--- NOTE | 2020-06-18 18:50 | NUR ---
SPOKE TO DR. VIRAMONTES AT NURSE'S STATION. UPDATED MD ON PATIENT'S STATUS. NO NEW ORDERS RECEIVED.
--- NOTE | 2020-06-18 19:15 | NUR ---
CLOSING NOTES PT AWAKE IN BED. NONLABORED BREATHING NOTED, RECEIVING O2 AT 2LPM VIA NASAL CANNULA, TOLERATING WELL. IV LINE INTACT AND PATENT, NO SIGNS OF INFILTRATION NOTED. PT CLEAN AND DRY. NO ACUTE DISTRESS NOTED. ALL NEEDS MET. CALL LIGHT IN REACH. FALL AND ASPIRATION PRECAUTIONS IN PLACE. ENDORSED CARE TO TUAN KRUSE.
--- NOTE | 2020-06-18 19:30 | NUR ---
CHANGE OF SHIFT; endorsed by day shift. no distress. on contact/airborne isolation for Covid. had dialysis today. for close observation.
[2020-06-18 20:00] VITALS: BP_SYST 113
--- NOTE | 2020-06-18 20:00 | NUR ---
NOTES; pt. checked, pretty awake, non verbal at this time, staring. VS checked. pt. incontinent of stool, cuca care done and repositioned. IV lock on rt. forearm. AV shunt on left upper thigh, hemodialysis today. on nuclear monitoring technician. bed alarm on, fall risk precaution. noted with left boot on.
[2020-06-18] MEDS: AZITHROMYCIN 500 MG in NS 250 ML IV SCH (20:59)
[2020-06-18] MEDS ORDERED: CEFEPIME 1 GM/VIAL (MAXIPIME) ONE (21:05)
[2020-06-18] MEDS ORDERED: AZITHROMYCIN 500 MG/VIAL (ZITHROMAX) IV ONE (21:05)
--- NOTE | 2020-06-18 21:23 | NUR ---
NOTES: pt. still awake, able to ask for water, drank and tolerated well. IV antibiotic infusing via rt. forearm. on registered nurse cardiac telemetry and shiows sinus rhythm. maintain bed rest. unable to use call light. on fall risk precaution, bed alarm on.
--- NOTE | 2020-06-18 23:53 | NUR ---
NOTES: called Dr. Perdomo for BS 466. a;ready given 12 units Humulin R ,no additional order.
[2020-06-19] VITALS: BP_SYST 115
--- NOTE | 2020-06-19 01:15 | NUR ---
NOTES: pt. checked and sleeping, no distress. observed contact isolation for Covid.
--- NOTE | 2020-06-19 03:00 | NUR ---
NOTES: cardiac pattern unchanged. condition observed, continue to monitor.
[2020-06-19] MEDS: CEFEPIME 1 GM in D5W 50 ML IV SCH (03:22)
--- NOTE | 2020-06-19 04:15 | NUR ---
NOTES: complete am care done and linen had another bm. changed. pt. more awake and alert but disoriented, looking for hier . IVF patent and antibiotic completed. had cranberry juice ,able to drink. pt. repositioned and pulled up in bed with nurse Degroot help.
[2020-06-19] MEDS: INSULIN REGULAR, HUMAN 100 UNITS/ML, 10 ML VIAL (humuLIN R) SUBCUT PRN ×2 (06:12→18:44)
--- NOTE | 2020-06-19 06:15 | NUR ---
NOTES: pt. more awake, wants to talk to her , called him thru the phone and let them talk. pt. still disoriented, thinking she is in a SNF. reoriented. laborer salvage here to draw blood. kept warm and comfortable.
--- NOTE | 2020-06-19 06:40 | NUR ---
CLOSING NOTES; BS checked 327 with sliding scale coverage. repositioned. left upper thigh AV graft intact with dressing. left foot boot in place ( hx of left broken ankle). remain on sinus rhythm. IV lock intact and patent on rt. forearm. for swallow eval today. call light at bedside but unable to use it. fall risk precaution, bed alarm on. for further care and assistance. will endorse to incoming shift.
[2020-06-19 07:18] LABS: CALCIUM 8.2 mg/dL (8.4-11.0); CREATININE 6.26 mg/dL (0.55-1.30); POTASSIUM 3.5 mmol/L (3.5-5.1)
[2020-06-19 07:24] LABS: ALBUMIN 2.9 g/dL (3.4-4.8); TOTAL BILIRUBIN 0.6 mg/dL (0.0-1.0)
[2020-06-19 07:32] LABS: BASOPHILS % (AUTO) 0.5 % (0.0-2.0); EOSINOPHILS % (AUTO) 0.1 % (0.0-4.0); HEMATOCRIT 29.3 % (36-48); HEMOGLOBIN 9.4 g/dL (12.0-16.0); LYMPHOCYTES # (AUTO) 0.2 K/uL (1.0-5.5); LYMPHOCYTES % (AUTO) 11.3 % (20.5-51.5); MEAN CORPUSCULAR HEMOGLOBIN 30 pg (27-31); MEAN CORPUSCULAR HGB CONC 32 % (32-36); MEAN CORPUSCULAR VOLUME 95 fL (79.0-98.0); MONOCYTES # (AUTO) 0.1 K/uL (0.0-1.0); MONOCYTES % (AUTO) 3.3 % (1.7-9.3); NEUTROPHILS # (AUTO) 1.9 K/uL (1.8-7.7); NEUTROPHILS % (AUTO) 84.8 % (40.0-70.0); PLATELET COUNT (AUTO) 101 K/uL (130-430); RED BLOOD CELL COUNT(AUTO) 3.09 MIL/uL (4.2-6.2); WHITE BLOOD COUNT (AUTO) 2.2 K/uL (4.8-10.8)
[2020-06-19 07:41] LABS: INR 1.2 (0.8-1.2); PROTHROMBIN TIME 12.7 SECS (9.5-12.5)
[2020-06-19 08:00] VITALS: BP_SYST 108
--- NOTE | 2020-06-19 08:00 | NUR ---
initial notes rec patient awake alert with periods of confusion. ivl intact. no infiltration noted. resp easy and unlabored', no sob noted. bed to the lowest position and side rails up and locked. call light within reached and knows to call when needing assistance.
--- NOTE | 2020-06-19 10:00 | NUR ---
rounds due meds were given and teo well. nelly light with reached. [facility]
[2020-06-19 11:26] LABS: C-REACTIVE PROTEIN QUANT 29.1 mg/dL (0-0.5)
[2020-06-19 12:00] VITALS: BP_SYST 120
--- NOTE | 2020-06-19 14:00 | NUR ---
rounds\ sleeping at intervals and teo well. poor appetite is noted. will continue to monitor patient
[2020-06-19] MEDS: DEXAMETHASONE SOD PHOSPHATE 10 MG/ML VIAL IVP SCH (16:00)
[2020-06-19 16:01] VITALS: BP_SYST 115
--- NOTE | 2020-06-19 18:30 | NUR ---
closing notes no hypo hyperglycemic reaction noted. call light within reached. no sob noted.
--- NOTE | 2020-06-19 19:15 | NUR ---
CHANGE OF SHIFT; endorsed by day shift, already calling for nurse. no acute distress. observed isolation for Covid. on fall risk precaution, bed alarm on.
[2020-06-19] MEDS ORDERED: NON-FORMULARY MEDICATION (Ergocalciferol (Vitamin D2) (Vitamin D2) 50,000 UNIT) PO SCH (19:30)
[2020-06-19] MEDS ORDERED: ONDANSETRON 4 MG ODT TAB PO PRN (19:30)
[2020-06-19] MEDS ORDERED: ISOSORBIDE MONONITRATE 30 MG TAB.ER.24H PO ONE (20:00)
[2020-06-19] MEDS ORDERED: FOLIC ACID 1 MG TABLET PO ONE (20:00)
[2020-06-19] MEDS ORDERED: ATORVASTATIN 20 MG TABLET PO ONE (20:00)
[2020-06-19] MEDS ORDERED: METOPROLOL TARTRATE 25 MG TABLET PO ONE (20:00)
[2020-06-19] MEDS ORDERED: SEVELAMER CARBONATE 800 MG TABLET PO ONE (20:00)
[2020-06-19] MEDS ORDERED: METOCLOPRAMIDE HCL 10 MG TABLET PO ONE (20:00)
[2020-06-19] MEDS ORDERED: KETOCONAZOLE 2%, 60 GM TOPICAL CREAM. (NIZORAL) TP ONE (20:00)
[2020-06-19] MEDS ORDERED: ASPIRIN 81 MG TAB.CHEW PO ONE (20:00)
[2020-06-19] MEDS ORDERED: GABAPENTIN 300 MG CAPSULE PO ONE (20:00)
[2020-06-19] MEDS ORDERED: NEPHROVITE, (FOLIC ACID/VITAMIN B COMP W-C 1 TAB) PO ONE (20:00)
[2020-06-19] MEDS ORDERED: CHOLECALCIFEROL (VITAMIN D3) 2,000 UNIT TABLET PO ONE (20:00)
[2020-06-19] MEDS ORDERED: SERTRALINE HCL 50 MG TABLET PO ONE (20:00)
[2020-06-19] MEDS ORDERED: PANTOPRAZOLE SODIUM 40 MG TAB PO ONE (20:00)
[2020-06-19 20:15] VITALS: BP_SYST 116
--- NOTE | 2020-06-19 20:15 | NUR ---
NOTES: pt. insisting to check her BS, was just checked 2 hours ago, anxious about it. VS checked. kept on 2 liters per nasal cannula ,O2 sat 97%. Keep HOB elevated. IV lock on rt. forearm. left upper thigh AV graft for hemodialysis, schedule for tomorrow. on surveillance monitor and shows sinus rhythm. left boot on for hx of broken ankle. pt. needs attended.
--- NOTE | 2020-06-19 20:20 | NUR ---
NOTES: pt. had small bowel movement, cuca care done and changed pad, repositioned. z annette on sacral area. call light within reach,
[2020-06-19] MEDS ORDERED: GABAPENTIN 300 MG CAPSULE PO SCH (21:00)
--- NOTE | 2020-06-19 21:40 | NUR ---
NOTES: due medications crushed with apple sauce ( around 14 pills) with some sips of water. pt. asked to call her and connected to the phone.
[2020-06-19] MEDS: CALCIUM CARBONATE/VITAMIN D3 1 TAB TABLET PO SCH (21:44)
[2020-06-19] MEDS: AZITHROMYCIN 500 MG in NS 250 ML IV SCH (21:45)
--- NOTE | 2020-06-19 23:00 | NUR ---
NOTES: pt. checked, finally went to sleep. condition observed.
[2020-06-20] MEDS: INSULIN REGULAR, HUMAN 100 UNITS/ML, 10 ML VIAL (humuLIN R) SUBCUT PRN ×5 (00:19→23:57)
--- NOTE | 2020-06-20 00:22 | NUR ---
NOTES: pt. awakened for BS checked 233 with sliding scale coverage. went back to sleep, repositioned. observed isolation.
[2020-06-20 01:57] VITALS: BP_SYST 108
--- NOTE | 2020-06-20 02:00 | NUR ---
NOTES: pt. incontinent of urine, cuca care done, linen changed , kept dry and warm with blanket. repositioned. cardiac pattern unchanged.
[2020-06-20] MEDS: CEFEPIME 1 GM in D5W 50 ML IV SCH (03:28)
--- NOTE | 2020-06-20 04:00 | NUR ---
NOTES: condition unchanged, continue to monitor. repositioned.
--- NOTE | 2020-06-20 05:15 | NUR ---
NOTES; called to get another telephone consent for plasma convalescent transfusion, no answer and left message. charge nurse Emily made aware.
--- NOTE | 2020-06-20 05:45 | NUR ---
NOTES: pt. remain sleeping, no complaints noted.
--- NOTE | 2020-06-20 06:20 | NUR ---
NOTES: called again the gal and was able to get a telephone consent for the plasma convalescent transfusion and witness by nurse Noble. called lab to inform the they could thaw the plasma, said it will be ready in 1 1/2 hours. will endorse to incoming shift, blood set up tubing will get ready.
--- NOTE | 2020-06-20 06:59 | NUR ---
CLOSING NOTES; BS checked 272, with sliding scale coverage. had moderate loose bowel movement, cuca care and changed pad , kept clean and dry. repositioned. IV flushed and keep patent. for plasma convalescent transfusion this am. for further care and assistance. call light within reach. observed contact isolation for Covid.
--- NOTE | 2020-06-20 07:20 | NUR ---
OPENING NOTE RECEIVED SBAR FROM NIGHT RN, PATIENT IN BED, RESPIRATIONS EVEN, NON LABORED, BED IN LOW AND LOCKED POSITION, CALL LIGHT WITHIN REACH, BED ALARM ON
[2020-06-20 08:00] VITALS: BP_SYST 113
[2020-06-20] MEDS: SEVELAMER CARBONATE 800 MG TABLET PO SCH ×3 (08:00→18:57)
--- NOTE | 2020-06-20 08:15 | NUR ---
nurse note obtained vs, provided and fed patient breakfast, consumed 85% of meal, patient incontinent of bowel and bladder, cleansed cuca area, changed linens, provided patient with partial bed bath, provided oral care, skin care. repositioned patient. patient tolerated well, no complaints of pain or discomfort
[2020-06-20] MEDS ORDERED: LANSOPRAZOLE 30 MG CAPSULE.DR PO SCH (09:00)
[2020-06-20] MEDS ORDERED: BIOTIN PO SCH (09:00)
[2020-06-20] MEDS ORDERED: VIT B CMPLX PO SCH (09:00)
[2020-06-20] MEDS: ISOSORBIDE MONONITRATE 30 MG TAB.ER.24H PO SCH (09:00)
[2020-06-20] MEDS: METOPROLOL TARTRATE 25 MG TABLET PO SCH (09:00)
[2020-06-20] MEDS ORDERED: NON-FORMULARY MEDICATION (Dexlansoprazole (Dexilant) 60 MG) PO SCH (09:00)
[2020-06-20] MEDS ORDERED: [UNRECOGNIZED DRUG - OTHER] PO SCH (09:00)
[2020-06-20] MEDS: ATORVASTATIN 20 MG TABLET PO SCH (09:00)
[2020-06-20] MEDS ORDERED: METOCLOPRAMIDE HCL 10 MG TABLET PO SCH (09:00)
--- NOTE | 2020-06-20 10:00 | NUR ---
nurse note patient in bed, respirations even, non labored, bed in low and locked position, call light within reach, repositioned patient, no complaints pain or discomfort
[2020-06-20] MEDS: FOLIC ACID 1 MG TABLET PO SCH (10:12)
[2020-06-20] MEDS: CALCIUM CARBONATE/VITAMIN D3 1 TAB TABLET PO SCH ×2 (10:12→20:22)
[2020-06-20] MEDS: NEPHROVITE, (FOLIC ACID/VITAMIN B COMP W-C 1 TAB) PO SCH (10:12)
[2020-06-20] MEDS: ASPIRIN 81 MG TAB.CHEW PO SCH (10:12)
[2020-06-20] MEDS: CHOLECALCIFEROL (VITAMIN D3) 2,000 UNIT TABLET PO SCH (10:13)
[2020-06-20] MEDS: METOCLOPRAMIDE HCL 10 MG TABLET PO SCH (10:13)
[2020-06-20] MEDS: KETOCONAZOLE 2%, 60 GM TOPICAL CREAM. (NIZORAL) TP SCH (10:13)
[2020-06-20] MEDS: SERTRALINE HCL 50 MG TABLET PO SCH (10:13)
[2020-06-20] MEDS: PANTOPRAZOLE SODIUM 40 MG TAB PO SCH (10:13)
--- NOTE | 2020-06-20 11:00 | NUR ---
nurse note patient incontinent of bowel and bladder, provided cuca care, applied moisture barrier cream, changed linens, bed in low and lcoked position call light within reach, bed alarm on
[2020-06-20 12:00] VITALS: BP_SYST 102
--- NOTE | 2020-06-20 12:30 | NUR ---
nurse note obtained, vs, obtained BS, administered insulin per sliding scale, provided patient with lunch, patient denies any pain or discomfort
--- NOTE | 2020-06-20 12:45 | NUR ---
high insulin informed Dr Perdomo of patients BS, 466, and that I administered insulin per sliding scale, no new orders
--- NOTE | 2020-06-20 13:40 | NUR ---
Convalescent Plasma Blood has been type and crossmatched. Plasma sent from blood bank. Information on unit of plasma checked against patient wristband at bedside by two nurses. All information matches. Patient or responsible democrat informed of potential complications associated with plasma transfusion. Informed of possible transfusion reaction symptoms. Aware of need to notify nurse at once of itching, shortness of breath, flushing, feeling of impending doom, or other symptoms not previously present. Vital signs taken within 5 minutes prior to initiation of transfusion. RN will remain with patient for first 15 minutes of transfusion at which time vital signs will be re-assessed.
--- NOTE | 2020-06-20 13:55 | NUR ---
nurse note obtained second vs, patient denies any pain or discomfort, bed in low and locked position, call light within reach, bed alarm on, patient incontinent of bowel and bladder, provided cuca care, changed linens, applied moisture barrier cream, repositioned
[2020-06-20 15:46] VITALS: BP_SYST 129
[2020-06-20] MEDS: DEXAMETHASONE SOD PHOSPHATE 10 MG/ML VIAL IVP SCH (15:48)
--- NOTE | 2020-06-20 15:49 | NUR ---
nurse note obtained patients vs, patient denies any pain or discomfort, bed in low and locked position, repositioned . crown ironer operator bedside
--- NOTE | 2020-06-20 17:30 | NUR ---
nurse note patient incontinent of bladder, provided cuca care, applied moisture barrier cream, repositioned patient, denies any pain or discomfort
--- NOTE | 2020-06-20 18:30 | NUR ---
nurse note obtained BS, administered insulin per sliding scale, administered medication, provided patient with dinner, denies any pain or discomfort, bed in low and locked position, call light within reach
--- NOTE | 2020-06-20 19:13 | NUR ---
CLOSING NOTE PROVIDED SBAR TO NIGHT RN, PATIENT IN BED, RESPIRATIONS EVEN, NON LABORED, NASAL CANULA 2L, BED IN LOW AND LOCKED POSITION, CALL LIGHT WITHIN REACH, BED ALARM ON, ENDORSED CARE TO NIGHT RN
[2020-06-20 19:50] VITALS: BP_SYST 107
--- NOTE | 2020-06-20 19:50 | NUR ---
INITIAL NOTES PATIENT IS STABLE AND LAYING IN BED. NO S/S OF RESPIRATORY DISTRESS NOTED. CALL LIGHT IN REACH. PATIENT SUCCESSFULLY DEMONSTRATES USAGE OF CALL LIGHT. BED IS LOCKED, ALARMED, AND AT THE LOWEST POSITION. FALL, SAFETY, ASPIRATION, COVID, AND RESPIRATORY PRECAUTIONS WILL BE IN PLACE THROUGHOUT THE SHIFT. PLAN OF CARE IS DISCUSSED WITH PATIENT.
[2020-06-20] MEDS: AZITHROMYCIN 500 MG in NS 250 ML IV SCH (20:22)
--- NOTE | 2020-06-20 21:50 | NUR ---
PATIENT HAD A BOWEL MOVEMENT. PATIENT WAS CLEANED, AND CHANGED AT THIS TIME. PATIENT WAS REPOSITION FOR COMFORT. CALL LIGHT IN REACH.
--- NOTE | 2020-06-20 23:00 | NUR ---
PATIENT HAD A BOWEL MOVEMENT AT THIS TIME. PATIENT WAS CLEANED, AND CHANGED AT THIS TIME. PATIENT WAS REPOSITION FOR COMFORT. PATIENT IS STABLE AND LAYING IN BED. CALL LIGHT IN REACH.
[2020-06-20 23:58] VITALS: BP_SYST 117
--- NOTE | 2020-06-21 01:06 | NUR ---
PATIENT IS STABLE AND SLEEPING IN BED. NO S/S OF RESPIRATORY DISTRESS NOTED. CALL LIGHT IN REACH.
[2020-06-21] MEDS: CEFEPIME 1 GM in D5W 50 ML IV SCH (03:06)
--- NOTE | 2020-06-21 03:15 | NUR ---
PATIENT HAD AN EPISODE OF CONFUSION AT THIS TIME. PATIENT DID NOT KNOW WHERE SHE WAS. PATIENT WAS RE-ORIENTED AT THIS TIME. PATIENT STATED THAT SHE HAD A BOWEL MOVEMENT. CHECKED AND NO BOWELMOVEMENT AT THIS TIME. PATIENT LINENS CHANGED AND REPOSITION FOR COMFORT. CALL LIGHT IN REACH.
--- NOTE | 2020-06-21 05:15 | NUR ---
PATIENT IS SLEEPING IN BED AND STABLE. NO S/S OF RESPIRATORY DISTRESS NOTED. CALL LIGHT IN REACH.
--- NOTE | 2020-06-21 06:30 | NUR ---
CLOSING NOTES PATIENT IS STABLE AND RESTING IN BED. NO S/S OF RESPIRATORY DISTRESS NOTED. CALL LIGHT IN REACH. BED IS LOCKED,ALARMED, AND AT THE LOWEST POSITION. FALL, SAFETY, ASPIRATION, COVID, AND RESPIRATORY PRECAUTIONS HAS BEEN IN PLACE THROUGHOUT THE SHIFT. WILL CONTINUE TO MONITOR UNTIL SBAR REPORT IS ENDORSED TO AM NURSE.
[2020-06-21] MEDS: INSULIN REGULAR, HUMAN 100 UNITS/ML, 10 ML VIAL (humuLIN R) SUBCUT PRN ×3 (06:41→17:45)
--- NOTE | 2020-06-21 06:47 | NUR ---
CLOSING NOTES PATIENT IS STABLE AND LAYING IN BED. PER PT REQUESTED, BROUGHT HER SNACKS. PATIENT IS TOLERATING FOOD WELL. NO S/S OF RESPIRATORY DISTRESS NOTED. CALL LIGHT IN REACH. BED IS LOCKED, AND AT THE LOWEST POSITION. FALL, SAFETY, ASPIRATION, COVID, AND RESPIRATORY PRECAUTIONS HAS BEEN IN PLACE THROUGHOUT THE SHIFT. WILL CONTINUE TO MONITOR UNTIL SBAR REPORT IS ENDORSED TO AM NURSE. Addendum: 06/21/20 at 0650 by Christelle Negrete RN WRONG PT*
[2020-06-21] MEDS: SEVELAMER CARBONATE 800 MG TABLET PO SCH ×3 (08:00→18:54)
[2020-06-21 09:00] VITALS: BP_SYST 117
--- NOTE | 2020-06-21 09:00 | NUR ---
opening notes, seen pt in bed, pt is sleeping, awaken for vitals signs, pt has no fever, no sob, pt on o2 2l per nc, iv access intact and patent, pt is aaox1, took a long time to answer questions, pt is [place]. breakfast provided with assist, pt took only a few spoons of pudding, to her medications but later on refused to have more food, offered ensure, pt took only a few sips of ensure. will cont to encouraged pt to eat. safety precaution inplace. call light in reach, bed in low position. will cont to monitor.
[2020-06-21] MEDS: ISOSORBIDE MONONITRATE 30 MG TAB.ER.24H PO SCH (09:54)
[2020-06-21] MEDS: METOPROLOL TARTRATE 25 MG TABLET PO SCH (09:54)
[2020-06-21] MEDS: FOLIC ACID 1 MG TABLET PO SCH (09:54)
[2020-06-21] MEDS: ATORVASTATIN 20 MG TABLET PO SCH (09:54)
[2020-06-21] MEDS: ASPIRIN 81 MG TAB.CHEW PO SCH (09:54)
[2020-06-21] MEDS: CHOLECALCIFEROL (VITAMIN D3) 2,000 UNIT TABLET PO SCH (09:55)
[2020-06-21] MEDS: SERTRALINE HCL 50 MG TABLET PO SCH (09:55)
[2020-06-21] MEDS: CALCIUM CARBONATE/VITAMIN D3 1 TAB TABLET PO SCH ×2 (09:55→21:00)
[2020-06-21] MEDS: PANTOPRAZOLE SODIUM 40 MG TAB PO SCH (09:55)
[2020-06-21] MEDS: KETOCONAZOLE 2%, 60 GM TOPICAL CREAM. (NIZORAL) TP SCH (09:55)
[2020-06-21] MEDS: METOCLOPRAMIDE HCL 10 MG TABLET PO SCH (09:55)
[2020-06-21] MEDS: NEPHROVITE, (FOLIC ACID/VITAMIN B COMP W-C 1 TAB) PO SCH (09:55)
--- NOTE | 2020-06-21 11:00 | NUR ---
pt sleeping in bed, pt's spouse called and updated w/ pt's condition and status.
[2020-06-21 12:00] VITALS: BP_SYST 111
--- NOTE | 2020-06-21 13:00 | NUR ---
pt offered lunch with assistance, pt took few spoons of peach and tomato soup, took about 5 sips of ensure. encouraged to eat more but pt refused. will cont to monitor pt.
--- NOTE | 2020-06-21 14:10 | NUR ---
Nutrition F/U RD reviewed pt's current EMR record including diet Hx, physician notes, nursing notes, pertinent labs/meds/procedures, care trends, and care activity. Admission Dx: Sepsis, ESRD PMH: Pt presents w/: Sepsis, Pneumonia, CKD Stage V on HD, HTN, DM Type 2, Dementia, Seizure, Thyroid Disease, COPD, GERD. Cardiac disorder per MD notes. SARS-CoV-2 Ag Rapid 06/16 Negative COVID-19 PCR 06/16 Positive Current Diet Order/Nutrition Support: Pureed x2 days Subjective Info: RD visit deferred d/t isolation precautions and to conserve PPE. RN reported that pt was likely downgraded to pureed diet d/t mentation. He reported that pt does not have much of an appretite, and requires assistance w/ meals but only took a few spoonfuls of pureed diet, and sips of Ensure Enlive ONS. RN reported that pt had HD yesterday, but will have it again today to moderate renal labs. Pt is not meeting nutritional needs, and requires encouragement at meals. Current diet is appropriate at this time. Pertinent Medications: nephrovite, reglan, os-nelly, renvela, decadron, SSI, SShumuLIN R Pertinent Labs: Na 137 WNL (improved), BG 341 H, BUN 34 H, CRE 6.26 H Skin Integrity Comment: Manuel scale: 15; no PIs noted per EMR review Current % PO 55% average x5 meals -- improving Estimated Energy Expenditure (kcals/day) 8452-7704 Kcal/day (30-35 kcal/kg CBW for sepsis/acuet state) Estimated Protein Required (g/day) 59-64 gm/day (1.2-1.3 gm/kg CBW for Renal Dz on dialysis) Estimated Fluid Required (l/day) per MD (Renal Dz) Problem/Etiology/Signs/Symptoms Altered nutrition-related labs r/t renal and endocrine dysfunction AEB elevated BG, BUN and SCre lab values and Hx of DM and Renal Disease. *ongoing, improving Inadequate protein-energy intake r/t pathophysiological factors AEB PO intake meets <25% of estimated needs. *improving Expected Outcomes/Goals Monitor appetite and PO intake w/ goal of pt meeting more than 75% of estimated nutritional needs, labs trending WNL, normal GI function, skin integrity/wt maintenance. Dietitian Recommendations *Recommend continuing pureed diet *Encourage increase PO intakes Follow Up Moderate Risk: F/U in 3-5 days
--- NOTE | 2020-06-21 14:20 | NUR ---
Dietitian Recommendations *Recommend continuing pureed diet *Encourage increase PO intakes LP, RD Please refer to Nutrition F/U for details.
[2020-06-21] MEDS: DEXAMETHASONE SOD PHOSPHATE 10 MG/ML VIAL IVP SCH (15:03)
[2020-06-21 16:15] VITALS: BP_SYST 117
--- NOTE | 2020-06-21 17:57 | NUR ---
PT REFUSED TO EAT DINNER EVEN WITH OFFERED ASSISTANCE.
--- NOTE | 2020-06-21 18:41 | NUR ---
CLOSING NOTE PT HAS BEEN STABLE THE WHOLE SHIFT, NO C/O PAIN, NO SOB. BLOOD SUGAR WAS CHECKED, IT WAS ELEVATED. PT HAS POOR PO INTAKE EVEN WITH ASSISTANCE WITH MEALS. DID NOT WANT TO TAKE ANYTHING FOR DINNER. WAITING FOR HD NURSE TO DO DIALYSIS. EVIN IS AWARE THAT DR NICOLAS WANTED TO HAVE ANOTHER HD TODAY TO SWITCH PT BACK TO HER REGULAR SCHEDULE OF TTHS. WILL ENDORSE TO TRY FEEDING AGAIN TONIGHT.
[2020-06-21 19:30] VITALS: BP_SYST 110
--- NOTE | 2020-06-21 19:30 | NUR ---
INITIAL NOTES PATIENT IS STABLE AND LAYING IN BED. NO S/S OF RESPIRATORY DISTRESS NOTED. CALL LIGHT IN REACH. PATIENT SUCCESSFULLY DEMONSTRATES USAGE OF CALL LIGHT. BED IS LOCKED, ALARMED, AND AT THE LOWEST POSITION. FALL, SAFETY, ASPIRATION, COVID, AND RESPIRATORY PRECAUTIONS WILL BE IN PLACE THROUGHOUT THE SHIFT. PLAN OF CARE IS DISCUSSED WITH PATIENT. Addendum: 06/21/20 at 2050 by Christelle Negrete RN SEIZURE PRECAUTIONS WILL BE IN PLACE THROUGHOUT THE SHIFT.
--- NOTE | 2020-06-21 19:44 | NUR ---
DIALYSIS NURSE CLEARY AT BED SIDE.
[2020-06-21 19:45] VITALS: BP_SYST 118
--- NOTE | 2020-06-21 20:30 | NUR ---
PATIENT IS STABLE AND GETTING DIALYSIS. PATIENT IS STABLE. NO S/S OF RESPIRATORY DISTRESS NOTED.
--- NOTE | 2020-06-21 22:11 | NUR ---
PATIENT IS STABLE AND GETTING DIALYSIS AT THIS TIME. NO S/S OF RESPIRATORY DISTRESS NOTED. CALL LIGHT IN REACH.
[2020-06-21] MEDS: AZITHROMYCIN 500 MG in NS 250 ML IV SCH (23:30)
--- NOTE | 2020-06-21 23:38 | NUR ---
DIALYSIS DONE AT THIS TIME. 2L WAS TAKEN OUT. PATIENT IS STABLE AND RESTING IN BED.
--- NOTE | 2020-06-21 23:40 | NUR ---
2100 MEDICATION. OFFERED PT MEDICATION AFTER DIALYSIS. PATIENT EDUCATED ON MEDICATION, PATIENT REFUSED. NO S/S OF RESPIRATORY DISTRESS NOTED. CALL LIGHT IN REACH.
[2020-06-22] VITALS: BP_SYST 100
[2020-06-22] MEDS: INSULIN REGULAR, HUMAN 100 UNITS/ML, 10 ML VIAL (humuLIN R) SUBCUT PRN ×3 (00:31→18:20)
--- NOTE | 2020-06-22 01:20 | NUR ---
PATIENT HAD A BOWEL MOVEMENT AT THIS TIME. PATIENT WAS CLEANED, CHANGED, AND REPOSITION FOR COMFORT. NO S/S OF RESPIRATORY DISTRESS NOTED. CALL LIGHT IN REACH.
--- NOTE | 2020-06-22 03:03 | NUR ---
PATIENT IS STABLE AND SLEEPING IN BED. NO S/S OF RESPIRATORY DISTRESS NOTED. CALL LIGHT IN REACH.
[2020-06-22] MEDS: CEFEPIME 1 GM in D5W 50 ML IV SCH (03:52)
--- NOTE | 2020-06-22 04:45 | NUR ---
PATIENT IS STABLE AND SLEEPING IN BED. NO S/S OF RESPIRATORY DISTRESS NOTED. CALL LIGHT IN REACH.
--- NOTE | 2020-06-22 06:45 | NUR ---
CLOSING NOTES PATIENT HAD A BOWEL MOVEMENT. PATIENT WAS CLEANED, CHANGED, AND REPOSITION FOR COMFORT. PATIENT IS STABLE AND RESTING IN BED. NO S/S OF RESPIRATORY DISTRESS NOTED. CALL LIGHT IN REACH. FALL, SAFETY, ASPIRATION, COVID, SEIZURE, AND RESPIRATORY PRECAUTIONS HAS BEEN IN PLACE THROUGHOUT THE SHIFT. BED IS LOCKED, ALARMED, AND AT THE LOWEST POSITION. Addendum: 06/22/20 at 0656 by Christelle Negrete RN WILL CONTINUE TO MONITOR UNTIL SBAR REPORT IS ENDORSE TO AM NURSE*
[2020-06-22 08:15] VITALS: BP_SYST 137
[2020-06-22] MEDS: SEVELAMER CARBONATE 800 MG TABLET PO SCH ×3 (08:33→18:43)
[2020-06-22] MEDS: SERTRALINE HCL 50 MG TABLET PO SCH (08:34)
[2020-06-22] MEDS: PANTOPRAZOLE SODIUM 40 MG TAB PO SCH (08:34)
[2020-06-22] MEDS: KETOCONAZOLE 2%, 60 GM TOPICAL CREAM. (NIZORAL) TP SCH (08:34)
[2020-06-22] MEDS: ISOSORBIDE MONONITRATE 30 MG TAB.ER.24H PO SCH (08:34)
[2020-06-22] MEDS: NEPHROVITE, (FOLIC ACID/VITAMIN B COMP W-C 1 TAB) PO SCH (09:00)
[2020-06-22] MEDS: ATORVASTATIN 20 MG TABLET PO SCH (09:00)
[2020-06-22] MEDS: CHOLECALCIFEROL (VITAMIN D3) 2,000 UNIT TABLET PO SCH (09:00)
[2020-06-22] MEDS: METOPROLOL TARTRATE 25 MG TABLET PO SCH (09:00)
[2020-06-22] MEDS: METOCLOPRAMIDE HCL 10 MG TABLET PO SCH (09:00)
[2020-06-22] MEDS: ASPIRIN 81 MG TAB.CHEW PO SCH (09:00)
[2020-06-22] MEDS: CALCIUM CARBONATE/VITAMIN D3 1 TAB TABLET PO SCH ×3 (09:00→22:26)
[2020-06-22] MEDS: FOLIC ACID 1 MG TABLET PO SCH (09:00)
--- NOTE | 2020-06-22 11:50 | NUR ---
pt's bs = 459, given recommended dose and paged dr gonzalez.
--- NOTE | 2020-06-22 12:03 | NUR ---
patient's o2 sat drops down to 88% when pt is off oxygen and when awake. pt's o2 sat on o2 2l nc is 998-100%.
--- NOTE | 2020-06-22 12:08 | NUR ---
Spoke w/ CM Iveth at [phone] will look for SNF placement at [facility]
[2020-06-22 13:00] VITALS: BP_SYST 127
[2020-06-22] MEDS: DEXAMETHASONE SOD PHOSPHATE 10 MG/ML VIAL IVP SCH (16:00)
[2020-06-22 18:00] VITALS: BP_SYST 135
--- NOTE | 2020-06-22 18:58 | NUR ---
closing notes, pt has been stable, bp wnl, no fever the whole shift, pt had 3x diarrhea, dr gonzalez's pa was here and made aware. pt still eating poorly. pt's spoke with pt over the phone. pt will have hd in am as ordered. order was given to hse sup. will endorse to night nurse.
--- NOTE | 2020-06-22 19:45 | NUR ---
INITIAL NOTE AT INITIAL ASSESSMENT, PATIENT IS RESTING IN BED, STABLE, NO SIGNS OF RESPIRATORY DISTRESS. PATIENT VERBALIZES NO PAIN. PLAN OF CARE FOR THE EVENING IS COMMUNICATED WITH THE PATIENT. PATIENT IS UNABLE TO DEMONSTRATE CORRECT USAGE OF CALL LIGHT AT THIS TIME DUE TO COGNITIVE IMPAIRMENT; FREQUENT ROUNDING WILL BE COMPLETED THROUGHOUT THE NIGHT TO MEET ALL PATIENT NEEDS. BED IS LOCKED, ALARMED, AND AT THE LOWEST LEVEL. FALL SAFETY EDUCATION PROVIDED. FALL, SAFETY, ASPIRATION, ISOLATION, SEIZURE, AND RESPIRATORY PRECAUTIONS WILL BE TAKEN THROUGHOUT THE SHIFT.
[2020-06-22 20:00] VITALS: BP_SYST 113
--- NOTE | 2020-06-22 21:45 | NUR ---
MED PASS NOTE SCHEDULED MEDICATIONS GIVEN AT THIS TIME, PATIENT TOLERATED WELL. CALL LIGHT IS PLACED WITHIN REACH. BED IS LOCKED, ALARMED, AND AT THE LOWEST LEVEL.
--- NOTE | 2020-06-22 23:45 | NUR ---
HYGIENE CARE NOTE HYGIENE CARE IS PROVIDED AT THIS TIME, FRESH LINENS PROVIDED, AND PATIENT IS REPOSITIONED FOR COMFORT. PATIENT TOLERATED WELL. CALL LIGHT PLACED WITHIN REACH. BED IS LOCKED, ALARMED, AND AT THE LOWEST LEVEL.
[2020-06-23] VITALS: BP_SYST 112
[2020-06-23] MEDS: INSULIN REGULAR, HUMAN 100 UNITS/ML, 10 ML VIAL (humuLIN R) SUBCUT PRN ×5 (00:39→23:52)
--- NOTE | 2020-06-23 00:45 | NUR ---
GC=714/ COMMUNICATION W/ DR. VIRAMONTES PATIENT'S BLOOD SUGAR CHECK AT THIS TIME IS 412; SHE IS NOT SHOWING ANY S/S OF HYPERGLYCEMIA. DR. VIRAMONTES IS PAGED PER HYPERGLYCEMIA PROTOCOL. VERBALIZED NO NEW ORDERS.
--- NOTE | 2020-06-23 01:20 | NUR ---
NOTE PATIENT IS SLEEPING, STABLE, NO SIGNS OF RESPIRATORY DISTRESS. CALL LIGHT IS WITHIN REACH. BED IS LOCKED, ALARMED, AND AT THE LOWEST LEVEL.
--- NOTE | 2020-06-23 03:20 | NUR ---
NOTE PATIENT IS SLEEPING, STABLE, NO SIGNS OF RESPIRATORY DISTRESS. CALL LIGHT IS WITHIN REACH. BED IS LOCKED, ALARMED, AND AT THE LOWEST LEVEL.
[2020-06-23] MEDS: CEFEPIME 1 GM in D5W 50 ML IV SCH (04:11)
--- NOTE | 2020-06-23 06:30 | NUR ---
CLOSING NOTE PATIENT SLEPT WELL THROUGHOUT THE SHIFT, NO SHORTNESS OF BREATH NOTED. AT THIS TIME, PATIENT IS RESTING IN BED, STABLE, NO SIGNS OF RESPIRATORY DISTRESS. CALL LIGHT IS WITHIN REACH. BED IS LOCKED, ALARMED, AND AT THE LOWEST LEVEL. FALL, SAFETY, ASPIRATION, ISOLATION, SEIZURE, AND RESPIRATORY PRECAUTIONS HAVE BEEN TAKEN THROUGHOUT THE SHIFT. WILL CONTINUE TO MONITOR UNTIL SHIFT REPORT IS GIVEN AT BEDSIDE TO AM NURSE.
--- NOTE | 2020-06-23 08:20 | NUR ---
AM ROUNDS: PATIENT AWAKE ,ON SEMI JIMÉNEZ'S POSITION. CONTACT,AIRBORNE AND DROPLET PRECAUTION RENDERED. WITH RIGHT FOREARM SALINE LOCK.LEFT LEG BRACE ON. LEFT UPPER THIGH AV SHUNT,DRESSING CLEAN AND DRY. NO ACUTE DISTRESS.
[2020-06-23 09:00] VITALS: BP_SYST 124
[2020-06-23] MEDS: ASPIRIN 81 MG TAB.CHEW PO SCH (09:02)
[2020-06-23] MEDS: FOLIC ACID 1 MG TABLET PO SCH (09:02)
[2020-06-23] MEDS: SEVELAMER CARBONATE 800 MG TABLET PO SCH ×3 (09:02→18:13)
[2020-06-23] MEDS: ATORVASTATIN 20 MG TABLET PO SCH (09:03)
[2020-06-23] MEDS: PANTOPRAZOLE SODIUM 40 MG TAB PO SCH (09:03)
[2020-06-23] MEDS: CALCIUM CARBONATE/VITAMIN D3 1 TAB TABLET PO SCH ×2 (09:03→21:00)
[2020-06-23] MEDS: NEPHROVITE, (FOLIC ACID/VITAMIN B COMP W-C 1 TAB) PO SCH (09:03)
[2020-06-23] MEDS: SERTRALINE HCL 50 MG TABLET PO SCH (09:04)
[2020-06-23] MEDS: CHOLECALCIFEROL (VITAMIN D3) 2,000 UNIT TABLET PO SCH (09:04)
[2020-06-23] MEDS: METOCLOPRAMIDE HCL 10 MG TABLET PO SCH (09:04)
[2020-06-23] MEDS: KETOCONAZOLE 2%, 60 GM TOPICAL CREAM. (NIZORAL) TP SCH (09:04)
--- NOTE | 2020-06-23 09:30 | NUR ---
FEEDER/CRUSHED MEDS: DUE PO CRUSHED MEDS GIVEN. SOME WERE REFUSED BY THE PATIENT. ASSISTED DURING BREAKFAST. ATE FAIR AND PATIENT TRIED FEEDING HER SELF,SLOWLY.
[2020-06-23] MEDS: METOPROLOL TARTRATE 25 MG TABLET PO SCH (09:56)
[2020-06-23] MEDS: ISOSORBIDE MONONITRATE 30 MG TAB.ER.24H PO SCH (09:56)
[2020-06-23 12:00] VITALS: BP_SYST 121
--- NOTE | 2020-06-23 12:30 | NUR ---
BLOOD SUGAR: BLOOD VYABS=384BP/DL,HUMULIN R 8 UNITS SUBQ GIVEN PER SLIDING SCALE.WITH NO PROBLEM.
--- NOTE | 2020-06-23 16:00 | NUR ---
HD: HEMODIALYSIS STARTED BY CLEARY.
[2020-06-23 16:15] VITALS: BP_SYST 110
[2020-06-23] MEDS: DEXAMETHASONE SOD PHOSPHATE 10 MG/ML VIAL IVP SCH (16:19)
[2020-06-23] MEDS ORDERED: HEPARIN SODIUM, PORCINE 10,000 UNITS/ 10 ML VIAL MC ONE (17:00)
[2020-06-23] MEDS ORDERED: ALBUMIN HUMAN 25% 200 ML IV ONE (17:00)
--- NOTE | 2020-06-23 17:00 | NUR ---
ALBUMIN 25%: ALBUMIN 25% 200CC IV FOR SBP <100 GIVEN DURING DIALYSIS BY CLEARY HD NURSE.
--- NOTE | 2020-06-23 17:44 | NUR ---
BLOOD SUGAR: BLOOD CPZDH=607SJ/DL,HUMULIN R 2 UNITS SUBQ GIVEN PER SLIDING SCALE.NO PROBLEM.
--- NOTE | 2020-06-23 18:16 | NUR ---
FEEDER: TOOK 1/2 CUP OF THE ICE CREAM THEN TOOK SOME SIPS OF CRANBERRY JUICE. THEN REFUSED REST OF THE TRAY.
--- NOTE | 2020-06-23 18:41 | NUR ---
END OF SHIFT: HD ALMOST DONE. NOT IN ANY DISTRESS. CALL LIGHT WITH IN REACH. BED LOCKED AT LOWEST POSITION. BED ALARM ON. CONTINUE TO MONITOR. NO SEIZURES NOTED DURING 12 HOUR SHIFT.MAINTAINED AIRBORNE,DROPLET CONTACT ISOLATION PRECAUTION.
[2020-06-23 19:45] VITALS: BP_SYST 103
--- NOTE | 2020-06-23 20:38 | NUR ---
MED PASS NOTE SCHEDULED MEDICATIONS GIVEN AT THIS TIME, PATIENT TOLERATED WELL. SHE IS ALSO REPOSITIONED FOR COMFORT. CALL LIGHT IS PLACED WITHIN REACH. BED IS LOCKED, ALARMED, AND AT THE LOWEST LEVEL.
--- NOTE | 2020-06-23 23:52 | NUR ---
NOTE PATIENT'S BLOOD SUGAR CHECK AT THIS TIME IS 261; SHE IS NOT SHOWING ANY S/S OF HYPERGLYCEMIA. INSULIN COVERAGE GIVEN PER MD SSI ORDERED BY MD. PATIENT IS RESTING IN BED, STABLE, NO SIGNS OF RESPIRATORY DISTRESS. SHE IS REPOSITIONED FOR COMFORT. CALL LIGHT IS WITHIN REACH. BED IS LOCKED, ALARMED, AND AT THE LOWEST LEVEL.
[2020-06-24] VITALS: BP_SYST 125
--- NOTE | 2020-06-24 01:20 | NUR ---
NOTE PATIENT IS SLEEPING, STABLE, NO SIGNS OF RESPIRATORY DISTRESS. CALL LIGHT IS WITHIN REACH. BED IS LOCKED, ALARMED, AND AT THE LOWEST LEVEL.
--- NOTE | 2020-06-24 01:20 | NUR ---
PAIN NOTE PATIENT IS COMPLAINING OF PAIN, PRN MEDICATION IS GIVEN AT THIS TIME FOR PATIENTS PAIN COMPLAINT PER MD ORDERS. WILL REASSESS IF PRN MEDICATION GIVEN WAS EFFECTIVE. CALL LIGHT PLACED WITHIN REACH. BED IS LOCKED, ALARMED, AND AT THE LOWEST LEVEL. Addendum: 06/24/20 at 0318 by Krissy May RN CORRECTION. NOTE INTENDED FOR DIFFERENT PATIENT.
--- NOTE | 2020-06-24 03:19 | NUR ---
NOTE PATIENT IS RESTING IN BED WATCHING TV, STABLE, NO SIGNS OF RESPIRATORY DISTRESS. CALL LIGHT IS WITHIN REACH. BED IS LOCKED, ALARMED, AND AT THE LOWEST LEVEL.
[2020-06-24] MEDS: SEVELAMER CARBONATE 800 MG TABLET PO SCH ×3 (08:00→18:00)
--- NOTE | 2020-06-24 08:00 | NUR ---
Am Rounds: Patient on semi denton's position.o2 2ll/nc,with good saturation. Iv saline lock at right forearm,intact. With left leg brace on.Call light with in reach. Bed locked at lowest position.Bed alarm on. Continue to monitor. Contact airborne and droplet precaution rendered.
[2020-06-24 08:30] VITALS: BP_SYST 136
[2020-06-24] MEDS: NEPHROVITE, (FOLIC ACID/VITAMIN B COMP W-C 1 TAB) PO SCH (09:00)
[2020-06-24] MEDS: ATORVASTATIN 20 MG TABLET PO SCH (09:00)
[2020-06-24] MEDS: METOPROLOL TARTRATE 25 MG TABLET PO SCH (09:00)
[2020-06-24] MEDS: SERTRALINE HCL 50 MG TABLET PO SCH (09:00)
[2020-06-24] MEDS: PANTOPRAZOLE SODIUM 40 MG TAB PO SCH (09:00)
[2020-06-24] MEDS: ASPIRIN 81 MG TAB.CHEW PO SCH (09:00)
[2020-06-24] MEDS: FOLIC ACID 1 MG TABLET PO SCH (09:00)
[2020-06-24] MEDS: METOCLOPRAMIDE HCL 10 MG TABLET PO SCH (09:00)
[2020-06-24] MEDS: ISOSORBIDE MONONITRATE 30 MG TAB.ER.24H PO SCH (09:00)
[2020-06-24] MEDS: CHOLECALCIFEROL (VITAMIN D3) 2,000 UNIT TABLET PO SCH (09:00)
[2020-06-24] MEDS: CALCIUM CARBONATE/VITAMIN D3 1 TAB TABLET PO SCH ×2 (09:00→21:00)
--- NOTE | 2020-06-24 09:00 | NUR ---
Refused Meds: Encourage patient to take her medications but refused to take them even after telling her the benefits of taking them.
[2020-06-24] MEDS: KETOCONAZOLE 2%, 60 GM TOPICAL CREAM. (NIZORAL) TP SCH (09:15)
[2020-06-24] MEDS: INSULIN REGULAR, HUMAN 100 UNITS/ML, 10 ML VIAL (humuLIN R) SUBCUT PRN ×3 (12:03→23:53)
[2020-06-24 12:10] VITALS: BP_SYST 137
--- NOTE | 2020-06-24 12:10 | NUR ---
Lunch/Feeder: Assisted patient to lunch,took some sips of coffee then refused. Offered some of the food in the tray but refused for now.
--- NOTE | 2020-06-24 14:15 | NUR ---
VENETIAN BLIND CLEANER AND REPAIRER ROUNDS: INFORMED DR PENNINGTON PATIENT REFUSED HER MEAL AND MEDICATIONS. NO NEW ORDERS MADE. DC PLANNING PER CASE MGT FOR POSSIBLE SNF.
--- NOTE | 2020-06-24 15:11 | NUR ---
DC Planning: s/w dr. Perdomo, dcp order to snf.He recommended [facility]. -- ashley Hudson at [facility] # [phone] made aware. He will find a accepting snf where can accommodate HD care/transporting pt to and from HD ctr.
[2020-06-24 16:12] VITALS: BP_SYST 110
[2020-06-24] MEDS: DEXAMETHASONE SOD PHOSPHATE 10 MG/ML VIAL IVP SCH (16:12)
--- NOTE | 2020-06-24 17:20 | NUR ---
CALLED: TRANSFER CALL TO THE PATIENT IN THE ROOM BUT SHE DID NOT TALK TO THE ,PT JUST LISTEN AND HOLDING THE PHONE.SPOKE TO PT'S YUDELKA AND UPDATES GIVEN.PT'S YUDELKA WANTS TO SPEAK TO THE CASE MGT AND MD FOR UPDATES TOMORROW.WILL ENDORSED TO NIGHT NURSE.
--- NOTE | 2020-06-24 17:30 | NUR ---
BLOOD SUGAR: BLOOD NDFMO=591OY/DL,HUMULIN R 2 UNITS SUBQ GIVEN PER SLIDING SCALE. NO PROBLEM.
--- NOTE | 2020-06-24 17:55 | NUR ---
DINNER: ASSISTED PATIENT TO EAT DINNER,TOOK SOME SIPS OF ENSURE AND REFUSED THE REST OF THE TRAY. WILL TRY AGAIN LATER.
--- NOTE | 2020-06-24 18:30 | NUR ---
CARE NOTES: PATIENT HAD SMALL SOFT STOOL.CARE RENDERED.BARRIER CREAM APPLIED.
--- NOTE | 2020-06-24 18:45 | NUR ---
END OF SHIFT: PATIENT RESTING. MAINTAINED O2 2L/NC,WITH GOOD SATURATION. CALL LIGHT WITH IN REACH. BED LOCKED AT LOWEST POSITION. BED ALARM ON. CONDITION GUARDED.
[2020-06-24 19:45] VITALS: BP_SYST 126
--- NOTE | 2020-06-24 21:40 | NUR ---
MED PASS NOTE PATIENT REFUSED SCHEDULED MEDICATIONS AT THIS TIME DESPITE EDUCATIONAL EFFORTS. WHEN ASKED WHY SHE DOES NOT WANT TO TAKE HER MEDICATION TONIGHT SHE KEPT SAYING "NO! I DON'T WANT TO! NO! I DON'T WANT TO!" WILL CONTINUE TO ENCOURAGE. SHE IS ALSO REPOSITIONED FOR COMFORT. CALL LIGHT IS PLACED WITHIN REACH. BED IS LOCKED, ALARMED, AND AT THE LOWEST LEVEL.
--- NOTE | 2020-06-24 23:40 | NUR ---
HYGIENE CARE REFUSED DESPITE SEVERAL EDUCATIONAL EFFORTS ENCOURAGEMENT, PATIENT HAS BEEN REFUSING HYGIENE CARE SINCE BEGINING OF SHIFT, AND FRESH LINENS PROVIDED, AND PATIENT IS REPOSITIONED FOR COMFORT. WILL CONTINUE TO ENCOURAGE. CALL LIGHT PLACED WITHIN REACH. BED IS LOCKED, ALARMED, AND AT THE LOWEST LEVEL.
--- NOTE | 2020-06-25 01:40 | NUR ---
NOTE PATIENT IS SLEEPING, STABLE, NO SIGNS OF RESPIRATORY DISTRESS. CALL LIGHT IS WITHIN REACH. BED IS LOCKED, ALARMED, AND AT THE LOWEST LEVEL.
--- NOTE | 2020-06-25 03:40 | NUR ---
NOTE PATIENT IS SLEEPING, STABLE, NO SIGNS OF RESPIRATORY DISTRESS. CALL LIGHT IS WITHIN REACH. BED IS LOCKED, ALARMED, AND AT THE LOWEST LEVEL.
--- NOTE | 2020-06-25 05:40 | NUR ---
POSITIVE BEHAVIOR CHANGE / HYGIENE CARE PATIENT HAS WOKEN UP IN A MUCH BETTER MOOD, AND SHE IS ENGAGING IN CONVERSATION NOW, SHE WAS EVEN ABLE TO DEMONSTRATE BACK CORRECT USAGE OF CALL LIGHT. SHE WAS ALSO WITNESSED FEEDING HERSELF WITHOUT ASSISTANCE. PATIENT WAS AGREEABLE TO HYGIENE CARE AT THIS TIME. HYGIENE CARE IS PROVIDED AT THIS TIME, FRESH LINENS PROVIDED, AND PATIENT IS REPOSITIONED FOR COMFORT. PATIENT TOLERATED WELL. CALL LIGHT PLACED WITHIN REACH. BED IS LOCKED, ALARMED, AND AT THE LOWEST LEVEL.
--- NOTE | 2020-06-25 06:30 | NUR ---
CLOSING NOTE PATIENT IS NOW MORE ALERT, SHE WAS SMILING AND IN A MUCH BETTER MOOD. SHE IS AGREEABLE TO DRINKING WATER AND ENSURE AT BEDSIDE WHICH SHE HAS BEEN REFUSING FOR THE LAST THREE NIGHTS. PATIENT SLEPT WELL THROUGHOUT THE SHIFT, NO SHORTNESS OF BREATH NOTED. AT THIS TIME, PATIENT IS RESTING IN BED, STABLE, NO SIGNS OF RESPIRATORY DISTRESS. CALL LIGHT IS WITHIN REACH. BED IS LOCKED, ALARMED, AND AT THE LOWEST LEVEL. FALL, SAFETY, ASPIRATION, ISOLATION, SEIZURE, AND RESPIRATORY PRECAUTIONS HAVE BEEN TAKEN THROUGHOUT THE SHIFT. WILL CONTINUE TO MONITOR UNTIL SHIFT REPORT IS GIVEN AT BEDSIDE TO AM NURSE.
[2020-06-25] MEDS: INSULIN REGULAR, HUMAN 100 UNITS/ML, 10 ML VIAL (humuLIN R) SUBCUT PRN ×3 (06:41→16:49)
[2020-06-25] MEDS ORDERED: BENZOCAINE/MENTHOL 1 EACH LOZENGE MM PRN (07:00)
[2020-06-25 08:00] VITALS: BP_SYST 116
--- NOTE | 2020-06-25 08:00 | NUR ---
Initial notes In bed, awake, alert. denies any pain or discomfort. on o2 2l saturating at 96%, no fever, no cough noted. Prepare breakfast for patient and offer help to feed her, patient stated she can feed herself. No distress noted. bed alarm on. Enc to call for help as needed.
[2020-06-25] MEDS: SEVELAMER CARBONATE 800 MG TABLET PO SCH ×3 (08:47→17:38)
[2020-06-25] MEDS ORDERED: METOPROLOL SUCCINATE 25 MG TAB.SR.24H (TOPROL XL) PO SCH (09:00)
--- NOTE | 2020-06-25 10:00 | NUR ---
notes has loose bowel movement, cleaned and repositioned patient. no acute distress noted.
[2020-06-25] MEDS: ISOSORBIDE MONONITRATE 30 MG TAB.ER.24H PO SCH (10:20)
[2020-06-25] MEDS: ATORVASTATIN 20 MG TABLET PO SCH (10:20)
[2020-06-25] MEDS: ASPIRIN 81 MG TAB.CHEW PO SCH (10:20)
[2020-06-25] MEDS: FOLIC ACID 1 MG TABLET PO SCH (10:20)
[2020-06-25] MEDS: METOPROLOL TARTRATE 25 MG TABLET PO SCH (10:21)
[2020-06-25] MEDS: NEPHROVITE, (FOLIC ACID/VITAMIN B COMP W-C 1 TAB) PO SCH (10:21)
[2020-06-25] MEDS: KETOCONAZOLE 2%, 60 GM TOPICAL CREAM. (NIZORAL) TP SCH (10:21)
[2020-06-25] MEDS: PANTOPRAZOLE SODIUM 40 MG TAB PO SCH (10:21)
[2020-06-25] MEDS: METOCLOPRAMIDE HCL 10 MG TABLET PO SCH (10:21)
[2020-06-25] MEDS: SERTRALINE HCL 50 MG TABLET PO SCH (10:21)
[2020-06-25] MEDS: CHOLECALCIFEROL (VITAMIN D3) 2,000 UNIT TABLET PO SCH (10:21)
[2020-06-25] MEDS: CALCIUM CARBONATE/VITAMIN D3 1 TAB TABLET PO SCH ×2 (10:21→21:00)
--- NOTE | 2020-06-25 11:36 | NUR ---
Layne w/ Corrie at [facility] gp-requested rapid Covid test for SNF placement-test ordered
[2020-06-25 12:00] VITALS: BP_SYST 117
--- NOTE | 2020-06-25 13:59 | NUR ---
Patient accepted at [facility] SNf room 2A-number for report [phone]. [facility] on will call [phone]. Spoke w/ patient's , Rico, he will not agree w/ transfer to SNF until he speaks to the MD's caring for the patient-He was given the the phone #'s for Dr Perdomo and Dr Josh Sauer.
[2020-06-25 16:00] VITALS: BP_SYST 115
--- NOTE | 2020-06-25 16:17 | NUR ---
DR VIRAMONTES CALLED DR VIRAMONTES AT [phone]. NO ANSWER AND WENT STRAIGHT TO [facility] WHICH IS ALREADY FULL. CALLED MD THRU EXCHANGE ND WAITING FOR CALLBACK
--- NOTE | 2020-06-25 16:30 | NUR ---
Notes has bowel movement. cleaned and repositioned for comfort. patient requested to check her sugar now.
--- NOTE | 2020-06-25 16:44 | NUR ---
blood sugar- check blood sugar 2x and reading is high. pt refuses to have peripheral blood draw to check exact blood sugar results. Patient is awake, watching tv, no distress noted. Called Dr. Perdomo cell number but messages if full at this time. will try to call again.
[2020-06-25] MEDS: DEXAMETHASONE SOD PHOSPHATE 10 MG/ML VIAL IVP SCH (16:51)
--- NOTE | 2020-06-25 16:54 | NUR ---
HIGH ALERT NOTE: Called Dr. Josh Sauer back at identified within the medical roster to verify physician authenticity. Addendum: 06/25/20 at 1659 by Trisha Marin RN at tel [phone] identified within the medical roster
--- NOTE | 2020-06-25 16:58 | NUR ---
page paged Dr Perdomo and JOHANN Barbour
[2020-06-25] MEDS ORDERED: INSULIN REGULAR, HUMAN 100 UNITS/ML, 10 ML VIAL SUBCUT ONE (17:00)
--- NOTE | 2020-06-25 18:00 | NUR ---
Notes patient refusing to re check blood sugar at this time.
--- NOTE | 2020-06-25 18:31 | NUR ---
Notes Spoke to Dr. gonzalez and made aware to call patient's Rico. Per case therapist wants to speak to Dr. Gonzalez first before he agreed to discharge patient's to SNF. Also informed Dr. Gonzalez patients high blood sugar, new orders received. Per, Dr. Gonzalez, he will call the and will discharge patient to SNF by tomorrow after dialysis and when blood sugar is stable. will endorse
--- NOTE | 2020-06-25 18:32 | NUR ---
HIGH ALERT NOTE: Called Dr. Perdomo back at identified within the medical roster to verify physician authenticity.
--- NOTE | 2020-06-25 19:00 | NUR ---
Notes/ picture Pictures was taken on both lower extremities but was accidentally deleted. will endorse.
[2020-06-25 20:00] VITALS: BP_SYST 108
[2020-06-25] MEDS: INSULIN GLARGINE 100 UNITS/ML 10 ML VIAL SUBCUT SCH (21:00)
[2020-06-26] VITALS: BP_SYST 111
[2020-06-26] MEDS: INSULIN REGULAR, HUMAN 100 UNITS/ML, 10 ML VIAL (humuLIN R) SUBCUT PRN ×2 (01:05→18:54)
[2020-06-26] MEDS ORDERED: DEXTROSE 50% JECT 50 ML DISP.SYRIN IVP ONE (07:00)
--- NOTE | 2020-06-26 07:26 | NUR ---
Opening Note received SBAR report from weight shifter RN, patient resting in bed, respirations even and unlabored on 2L nasal cannula, no acute distress noted, educated patient on use of call light and asked to call for assistance, patient verbalized understanding, call light in reach, bed in low and locked position, bed alarm on.
[2020-06-26 08:00] VITALS: BP_SYST 105
[2020-06-26] MEDS: SERTRALINE HCL 50 MG TABLET PO SCH (08:07)
[2020-06-26] MEDS: ASPIRIN 81 MG TAB.CHEW PO SCH (08:07)
[2020-06-26] MEDS: CALCIUM CARBONATE/VITAMIN D3 1 TAB TABLET PO SCH ×2 (08:08→21:00)
[2020-06-26] MEDS: ATORVASTATIN 20 MG TABLET PO SCH (08:08)
[2020-06-26] MEDS: PANTOPRAZOLE SODIUM 40 MG TAB PO SCH (08:08)
[2020-06-26] MEDS: FOLIC ACID 1 MG TABLET PO SCH (08:09)
[2020-06-26] MEDS: CHOLECALCIFEROL (VITAMIN D3) 2,000 UNIT TABLET PO SCH (08:09)
[2020-06-26] MEDS: SEVELAMER CARBONATE 800 MG TABLET PO SCH ×3 (08:09→18:00)
[2020-06-26] MEDS: NEPHROVITE, (FOLIC ACID/VITAMIN B COMP W-C 1 TAB) PO SCH (08:09)
[2020-06-26] MEDS: METOCLOPRAMIDE HCL 10 MG TABLET PO SCH (08:10)
[2020-06-26] MEDS: KETOCONAZOLE 2%, 60 GM TOPICAL CREAM. (NIZORAL) TP SCH (08:10)
[2020-06-26] MEDS: ISOSORBIDE MONONITRATE 30 MG TAB.ER.24H PO SCH (08:10)
[2020-06-26] MEDS: INSULIN GLARGINE 100 UNITS/ML 10 ML VIAL SUBCUT SCH ×2 (08:11→20:25)
[2020-06-26] MEDS: METOPROLOL TARTRATE 25 MG TABLET PO SCH (08:45)
--- NOTE | 2020-06-26 08:45 | NUR ---
Incontinent patient incontinent of bowel, patient cleaned and linen changed, assisted patient to reposition, patient tolerated well, patient sitting up in bed eating breakfast, tolerating well, no acute distress noted.
[2020-06-26 12:00] VITALS: BP_SYST 95
--- NOTE | 2020-06-26 12:00 | NUR ---
Hemodialysis dental chair assembler at bedside, per dental chair assembler Edenilson he is just finishing hemodialysis, 600ml out, per Edenilson RN he obtained a telephone order for hemodialysis from Dr. Rodriges, dental chair assembler filled out physicians order sheet and it was placed in the patients chart, patient resting in bed, no bleeding noted from left thigh dialysis site, no acute distress noted, patient denies any pain, respirations even and unlabored on 2L nasal cannula.
--- NOTE | 2020-06-26 12:32 | NUR ---
Nutrition F/U RD reviewed pt's current EMR record including diet Hx, physician notes, nursing notes, pertinent labs/meds/procedures, care trends, and care activity. Admission Dx: Sepsis, ESRD PMH: Pt presents w/: Sepsis, Pneumonia, CKD Stage V on HD, HTN, DM Type 2, Dementia, Seizure, Thyroid Disease, COPD, GERD. Cardiac disorder per MD notes. SARS-CoV-2 Ag Rapid 06/16 Negative COVID-19 PCR 06/16 Positive Current Diet Order/Nutrition Support: Pureed x7 days Subjective Info: RD visit deferred d/t isolation precautions and to conserve PPE. RD was unable to reach RN d/t RN n/a at [facility]. RN note stated pt has had sips of Ensure at dinner on 06/24, seen feeding herself w/o assistance yesterday, and sitting herself up eating breakfast today. Pt remains to have poor PO intake of 20% x last 12 meals per intake record, w/ last 3 meals at 50%, which appears to be increasing. Unable to obtain PO% of breakfast today at this time. Per RN note, pt is planned for d/c to SNF per MD by tomorrow after HD. Last HD is on 06/23 w/ 1800 ml output. Pt is not meeting nutritional needs, and requires encouragement at meals. Current diet remains appropriate at this time. Pertinent Medications: nephrovite, reglan, os-nelly, renvela, decadron, SShumuLIN R, zofran, folic acid, Lantus, Vol-care rx tablet, Lipitor, Vit D3, Vit D2 Pertinent Labs: Na 137 WNL (improved), BG 341 H, BUN 34 H, CRE 6.26 H, POC BG 357-57 Skin Integrity Comment: Manuel scale: 15; no PIs noted per EMR review Current % PO 20% average x 12 meals -- regressing Estimated Energy Expenditure (kcals/day) 7054-9376 Kcal/day (30-35 kcal/kg CBW for sepsis/acuet state) Estimated Protein Required (g/day) 59-64 gm/day (1.2-1.3 gm/kg CBW for Renal Dz on dialysis) Estimated Fluid Required (l/day) per MD (Renal Dz) Problem/Etiology/Signs/Symptoms Altered nutrition-related labs r/t renal and endocrine dysfunction AEB elevated BG, BUN and SCre lab values and Hx of DM and Renal Disease. *ongoing, no new updates Inadequate protein-energy intake r/t pathophysiological factors AEB PO intake meets <25% of estimated needs. *ongoing Expected Outcomes/Goals Monitor appetite and PO intake w/ goal of pt meeting more than 75% of estimated nutritional needs, labs trending WNL, normal GI function, skin integrity/wt maintenance. Dietitian Recommendations *Recommend continuing pureed diet *Encourage increase PO intakes Follow Up Moderate Risk: F/U in 3-5 days
--- NOTE | 2020-06-26 12:46 | NUR ---
Dietitian Recommendations *Recommend continuing pureed diet *Encourage increase PO intakes Please see Nutrition F/U for details. EP RD
--- NOTE | 2020-06-26 13:55 | NUR ---
RN Rounds patient resting in bed, respirations even and unlabored on 2L nasal cannula, no acute distress noted, patient denies any pain.
--- NOTE | 2020-06-26 14:18 | NUR ---
Spoke w/ Koir-[phone]-he refused transfer to SNF-he stated he does not feel his is medically stable for transfer to SNF-spoke w/ Deborah at [facility]-notified her of 's refusal to transfer to SNF, she will discuss 's decision w/ CM and Ironworker Wire Fence Erector and get back to me.
--- NOTE | 2020-06-26 16:08 | NUR ---
Bedbath patient states that she is having diarrhea and needs to be changed, patient was clean and no diarrhea was noted, assisted patient with bed bath, changed linen, patient tolerated well, no acute distress noted.
[2020-06-26 16:10] VITALS: BP_SYST 98
[2020-06-26] MEDS: DEXAMETHASONE SOD PHOSPHATE 10 MG/ML VIAL IVP SCH (16:51)
--- NOTE | 2020-06-26 18:25 | NUR ---
RN Rounds patient sitting up in bed eating dinner, patient able to eat independently, patient tolerating well, no acute distress noted.
--- NOTE | 2020-06-26 19:08 | NUR ---
Closing Note SBAR report given to receiving RN, patient resting in bed, respirations even and unlabored on 2L nasal cannula, no acute distress noted, educated patient on use of call light and asked to call for assistance, patient verbalized understanding, call light in reach, bed in low and locked position, bed alarm on, care endorsed to weight shifter RN.
--- NOTE | 2020-06-26 19:30 | NUR ---
OPENING NOTES RECEIVED REPORT FROM DAY SHIFT RN. PT RESTING IN BED, BREATHING EVEN AND UNLABORED TO O2 VIA NC AT 2L. NO S/S OF SHORTNESS OF BREATH NOTED. RIGHT FA 22G, INTACT, SL. NO SIGNS OF INFILTRATION NOTED. CALL LIGHT WITHIN REACH. SIDE RAILS UP X3. BED ALARM ON, LOCKED IN LOWEST LEVEL. SAFETY, FALL, AND ISOLATION PRECAUTIONS MAINTAINED. WILL CONTINUE TO MONITOR.
[2020-06-26 20:00] VITALS: BP_SYST 100
[2020-06-27] VITALS: BP_SYST 118
[2020-06-27] MEDS: INSULIN REGULAR, HUMAN 100 UNITS/ML, 10 ML VIAL (humuLIN R) SUBCUT PRN ×3 (00:58→17:17)
--- NOTE | 2020-06-27 03:00 | NUR ---
PT REQUESTING TURKEY SANDWICH BUT COULDN'T PROVIDE BECAUSE PT DIET IS PUREED. OFFERED JELLO, PUDDING, AND APPLESAUCE, BUT PT REFUSED ALL AND UPSET NOW.
--- NOTE | 2020-06-27 06:04 | NUR ---
ACCU-CHECK BLOOD SUGAR OF 69. OFFERED APPLE JUICE FOR FIVE TIMES, PT REFUSED. PT STATED THAT SHE DOESN'T WANT TO DRINK ANYTHING EXCEPT FOR HOT TEA.
[2020-06-27] MEDS ORDERED: GLUCOSE (DEXTROSE) ORAL GEL -Adults PO PRN (06:15)
[2020-06-27] MEDS ORDERED: D5W 1,000 ML IV PRN (06:15)
[2020-06-27] MEDS ORDERED: DEXTROSE 50% JECT 50 ML DISP.SYRIN IVP PRN (06:15)
[2020-06-27 07:00] LABS: BASOPHILS % (AUTO) 1.3 % (0.0-2.0); EOSINOPHILS % (AUTO) 0.1 % (0.0-4.0); HEMATOCRIT 31.9 % (36-48); HEMOGLOBIN 10.4 g/dL (12.0-16.0); LYMPHOCYTES # (AUTO) 0.5 K/uL (1.0-5.5); LYMPHOCYTES % (AUTO) 16.1 % (20.5-51.5); MEAN CORPUSCULAR HEMOGLOBIN 30 pg (27-31); MEAN CORPUSCULAR HGB CONC 33 % (32-36); MEAN CORPUSCULAR VOLUME 91 fL (79.0-98.0); MONOCYTES # (AUTO) 0.1 K/uL (0.0-1.0); MONOCYTES % (AUTO) 2.9 % (1.7-9.3); NEUTROPHILS # (AUTO) 2.4 K/uL (1.8-7.7); NEUTROPHILS % (AUTO) 79.6 % (40.0-70.0); PLATELET COUNT (AUTO) 183 K/uL (130-430)
[2020-06-27 07:34] LABS: CALCIUM 8.8 mg/dL (8.4-11.0); CREATININE 5.43 mg/dL (0.55-1.30); POTASSIUM 3.9 mmol/L (3.5-5.1)
[2020-06-27 08:18] VITALS: BP_SYST 120
--- NOTE | 2020-06-27 08:30 | NUR ---
Initial note: Patient is alert, oriented x4, but forgetful sometimes, to name and time. She is on Oxygen 2 L/M via NC, no sign of distress. She has a boot on her left foot, but refused to take off or just to check her skin. She has said that her ankle was broken and the shoe is very difficult to fit back in if removed.
[2020-06-27] MEDS: SEVELAMER CARBONATE 800 MG TABLET PO SCH ×4 (08:45→17:19)
[2020-06-27] MEDS: PANTOPRAZOLE SODIUM 40 MG TAB PO SCH (09:45)
[2020-06-27] MEDS: METOCLOPRAMIDE HCL 10 MG TABLET PO SCH (09:45)
[2020-06-27] MEDS: NEPHROVITE, (FOLIC ACID/VITAMIN B COMP W-C 1 TAB) PO SCH (09:45)
[2020-06-27] MEDS: KETOCONAZOLE 2%, 60 GM TOPICAL CREAM. (NIZORAL) TP SCH (09:45)
[2020-06-27] MEDS: CALCIUM CARBONATE/VITAMIN D3 1 TAB TABLET PO SCH (09:45)
[2020-06-27] MEDS: CHOLECALCIFEROL (VITAMIN D3) 2,000 UNIT TABLET PO SCH (09:45)
[2020-06-27] MEDS: SERTRALINE HCL 50 MG TABLET PO SCH (09:45)
[2020-06-27] MEDS: ATORVASTATIN 20 MG TABLET PO SCH (09:46)
[2020-06-27] MEDS: ASPIRIN 81 MG TAB.CHEW PO SCH (09:46)
[2020-06-27] MEDS: METOPROLOL TARTRATE 25 MG TABLET PO SCH (09:46)
[2020-06-27] MEDS: ISOSORBIDE MONONITRATE 30 MG TAB.ER.24H PO SCH (09:46)
[2020-06-27] MEDS: FOLIC ACID 1 MG TABLET PO SCH (09:46)
[2020-06-27] MEDS: INSULIN GLARGINE 100 UNITS/ML 10 ML VIAL SUBCUT SCH (09:50)
[2020-06-27 12:00] VITALS: BP_SYST 105
--- NOTE | 2020-06-27 13:30 | NUR ---
ID round: makes round in the room, but he has no new order. States that he spoke to patient's 2 days ago. States to have Dr. Perdomo call the .
--- NOTE | 2020-06-27 16:40 | NUR ---
round: makes round and has spoke to patient's on the phone about patient's condition and DC to SNF.
[2020-06-27 16:56] VITALS: BP_SYST 115
--- NOTE | 2020-06-27 17:09 | NUR ---
AMBULANCE ARRANGEMENT MADE CALLED [facility] TO SCHEDULE EPIC WILLOW ANALYST TIME FOR THE PATIENT 1900 SCHEDULED TIME SPOKE WITH KENRICK.
--- NOTE | 2020-06-27 17:45 | NUR ---
CALL FOR REPORT: PATIENT HAS AN ORDER TO DC TO SNF AT [facility] PER A TOLL TICKET CLERK. HAS SPOKE TO YUDELKA<PATIENT'S > AND HE CONSENTS FOR THE TRANSFER. CALL AND GIVE REPORT TO EVA, A CHARGE NURSE AT THE SNF. REMOVE IV SITE WITH TIP INTACT, APPLY PRESSURE DRESSING, NO SIGN OF BLEEDING. AWAITING FOR TRANSPORTATION AT 1900.
[2020-06-27 18:07] VITALS: BP_SYST 115
--- NOTE | 2020-06-27 18:59 | NUR ---
CLOSING NOTE: PATIENT IS STABLE, NO SIGN OF DISTRESS. AWAITING FOR AMBULANCE TO BE TRANSFER TO SNF. SHE TOLERATES MECHANICAL SOFT DIET FOR DINNER WELL. NO N/V.
--- NOTE | 2020-06-27 19:55 | NUR ---
DISCHARGED REPORT GIVEN TO GEORGE THRASHER. [facility]. UNIT NUMBER OF [id number]. DISCHARGE INSTRUCTION GIVEN, PATIENT INFORMATION PACKET GIVEN TO EMT. PATIENTS DIALYSIS SCHEDULE. VITAL SIGNS TAKEN, WNL. PATIENT AWAKE, AOX2-3. NO SIGNS OF RESPIRATORY DISTRESS AND DISCOMFORT NOTED. BREATHING EVEN AND UNLABORED. ON 2L OF OXYGEN VIA NASAL CANULA, TOLERATING WELL. PATIENT ATE 100% OF DINNER. PATIENT SAFELY TRANSFERRED TO [facility]. SAFETY PRECAUTIONS IN PLACE. ALL NEEDS MET.
== END 2020-06-27 19:55 | DRG 871 ==
LOC: SED 13:18 → STU 16:55
PROVIDERS: ADMIT Internal Medicine; ATTEND Internal Medicine
PROC: 5A1D70Z Performance of Urinary Filtration, Intermittent, Less than 6 Hours Per Day (ICD-10-PCS; 2020-06-17)
PROC: 5A1D70Z Performance of Urinary Filtration, Intermittent, Less than 6 Hours Per Day (ICD-10-PCS; 2020-06-18)
PROC: XW13325 Transfusion of Convalescent Plasma (Nonautologous) into Peripheral Vein, Percutaneous Approach, New Technology Group 5 (ICD-10-PCS; principal; 2020-06-20)
PROC: 5A1D70Z Performance of Urinary Filtration, Intermittent, Less than 6 Hours Per Day (ICD-10-PCS; 2020-06-20)
PROC: 5A1D70Z Performance of Urinary Filtration, Intermittent, Less than 6 Hours Per Day (ICD-10-PCS; 2020-06-21)
PROC: 5A1D70Z Performance of Urinary Filtration, Intermittent, Less than 6 Hours Per Day (ICD-10-PCS; 2020-06-23)
DX: A41.9 Sepsis, unspecified organism (principal); U07.1 COVID-19; J18.9 Pneumonia, unspecified organism; N18.6 End stage renal disease; J96.01 Acute respiratory failure with hypoxia; I12.0 Hypertensive chronic kidney disease with stage 5 chronic kidney disease or end stage renal disease; E11.22 Type 2 diabetes mellitus with diabetic chronic kidney disease; F32.9 Major depressive disorder, single episode, unspecified; E87.5 Hyperkalemia; F03.90 Unspecified dementia, unspecified severity, without behavioral disturbance, psychotic disturbance, mood disturbance, and anxiety; K21.9 Gastro-esophageal reflux disease without esophagitis; G40.909 Epilepsy, unspecified, not intractable, without status epilepticus; J44.9 Chronic obstructive pulmonary disease, unspecified; D63.1 Anemia in chronic kidney disease; E21.1 Secondary hyperparathyroidism, not elsewhere classified; Z79.4 Long term (current) use of insulin; Z99.2 Dependence on renal dialysis; Z79.899 Other long term (current) drug therapy; Z79.82 Long term (current) use of aspirin; Z85.828 Personal history of other malignant neoplasm of skin; Z86.73 Personal history of transient ischemic attack (TIA), and cerebral infarction without residual deficits; Z87.81 Personal history of (healed) traumatic fracture
CPT/HCPCS: 36415; 36600; 70450-TC; 71045; 74018; 80048; 80053; 82140-TC; 82728; 82803-TC; 82962; 83605; 83615-TC; 83880; 84100-TC; 84439; 84484; 85025; 85379; 85384-TC; 85610-TC; 85730-TC; 86140; 86886; 86900; 86901; 87040-TC; 87081; 90935; 90937; 93005; 96365; 96367; 96375; 99285; G0378; G0482; J0456; J0692; J0696; J1100; J1644; J1815; J7030; J7050; J7060; J8597; P9017; U0003

== ENCOUNTER 2020-07-13 13:30 | Emergency (ER) | payer OTHER, SELFPAY ==
[~2020-07-13] VITALS: Ht 147.3 cm; Wt 49.9 kg
[~2020-07-13 13:30] MED LIST changes: +ASA81 PO; +CALC-939 PO; +ERGO2000; -LEVO137T20 PO; -PIPE3.379 IV; +VITD2000 PO
[2020-07-13 13:45] VITALS: BP_SYST 100
--- NOTE | 2020-07-13 13:56 | NUR ---
Patient triaged and placed in waiting room. VSS and patient appears in no acute distress at this time. Accompanied by her son, awaiting available bed, and MD notified of need for MSE.
--- NOTE | 2020-07-13 14:00 | NUR ---
Patient to ER chair for evaluation. Side rails up.
--- NOTE | 2020-07-13 14:01 | NUR ---
Patient came with son from [facility] for evaluation. Patient fell while getting out of the shower this morning and bumped her head. She denies nausea,vomiting,knockout or pain. No bump noted on her scalp. [facility] denied service until cleared by ER.
--- NOTE | 2020-07-13 14:30 | NUR ---
ER at chair examining patient.
[2020-07-13 14:50] VITALS: BP_SYST 100
--- NOTE | 2020-07-13 14:50 | NUR ---
Patient given written and verbal discharge instructions and verbalizes understanding. DR. KELLY FRANK MD discussed with patient the results and treatment provided. Patient in stable condition. ID arm band removed. Patient educated on pain management and to follow up with PMD. Pain Scale 0/10.Opportunity for questions provided and answered.
== END 2020-07-13 14:50 | disposition home or self-care (01) ==
LOC: SED 13:30
DX: S00.83XA Contusion of other part of head, initial encounter (principal); I12.0 Hypertensive chronic kidney disease with stage 5 chronic kidney disease or end stage renal disease; E11.22 Type 2 diabetes mellitus with diabetic chronic kidney disease; N18.6 End stage renal disease; E07.9 Disorder of thyroid, unspecified; Z79.899 Other long term (current) drug therapy; Z79.82 Long term (current) use of aspirin; Z79.4 Long term (current) use of insulin; W18.09XA Striking against other object with subsequent fall, initial encounter; Y93.89 Activity, other specified; Y92.89 Other specified places as the place of occurrence of the external cause; Y99.8 Other external cause status
CPT/HCPCS: 99281

== ENCOUNTER 2020-08-13 09:50 | Emergency (ER) | payer OTHER ==
--- NOTE | 2020-08-13 09:50 | NUR ---
BIB family in private auto. CPR started in parking lot. Pt was on her way to dialysis when her breathing machine stopped working. Family brought her in immediately.
--- NOTE | 2020-08-13 09:55 | NUR ---
Pt to bed 6. Patient not known to be of DNR status. CPR in progress.
--- NOTE | 2020-08-13 10:20 | NUR ---
Nuria green in EDM - 08/14/20 at 1217 by SDEDTD [facility] Department of Portable Track Crew Chief called contacted by Justina Holt. Case #[id number] .
--- NOTE | 2020-08-13 11:52 | NUR ---
SS notes: PRODUCTION CONTROL TECHNOLOGIST received a call from Melida Mishra ED RN regarding family wanting to speak with SS. PRODUCTION CONTROL TECHNOLOGIST met with spouse and son needing some mortuary resources. PRODUCTION CONTROL TECHNOLOGIST provided them with emotional support and information on mortuary/bereavement resources and educated on the process. Family was thankful and will call SS if questions arise. SS will remain available.
--- NOTE | 2020-08-13 12:00 | NUR ---
[facility] Case #[id number].
--- NOTE | 2020-08-13 12:05 | NUR ---
[facility] Department of Coupon Collection Clerk called contacted by . Spoke with Pelon Holt. Body released by Coupon Collection Clerk.
--- NOTE | 2020-08-13 12:20 | NUR ---
Spoke with Rico Brown notified Astronomy Teacher released body.
--- NOTE | 2020-08-14 10:20 | NUR ---
Nuria green in EDM - 08/14/20 at 1202 by SDEDTD [facility] Department of Pathology Assistant called contacted by Justina Holt. Case #[id number] .
== END 2020-08-13 10:08 | disposition expired ==
LOC: SED 09:50
DX: I46.9 Cardiac arrest, cause unspecified (principal); I12.0 Hypertensive chronic kidney disease with stage 5 chronic kidney disease or end stage renal disease; E11.22 Type 2 diabetes mellitus with diabetic chronic kidney disease; N18.6 End stage renal disease; E07.9 Disorder of thyroid, unspecified; Z79.899 Other long term (current) drug therapy; Z79.82 Long term (current) use of aspirin; Z79.4 Long term (current) use of insulin; Z20.828 Contact with and (suspected) exposure to other viral communicable diseases
CPT/HCPCS: 36415; 99285